=== PATIENT | male | born 1950 | race Caucasian/White ===

== ENCOUNTER 2017-03-03 13:14 | Emergency (ER) | payer MEDICARE, BC ==
[~2017-03-03] VITALS: Ht 175.3 cm; Wt 80.7 kg
[~2017-03-03 13:14] MED LIST: AMLO1TAB37 PO; CHOL4000 PO; INSU100C4 SQ; INSU100V8 SQ; LISI10TA2 PO; MAGN400T17 PO; METO25TA9 PO; NIAC500T82 PO; PANT40TA5 PO; TERB12GE TP; TRAM50TA PO
[2017-03-03 13:15] VITALS: BP 168/83
[2017-03-03] MEDS ORDERED: LIDOCAINE 2%/EPI 1:100,000 20 ML VIAL. ONE (14:19)
[2017-03-03] MEDS ORDERED: LIDOCAINE 2%/EPI 1:100,000 20 ML VIAL. IJ ONE (14:30)
[2017-03-03] MEDS ORDERED: cefTRIAXone IM 1 GM VIAL IM ONE (14:45)
--- NOTE | 2017-03-03 15:15 | PHYS DOC ---
General Chief Complaint: LACERATION/AVULSION Stated Complaint: RT HAND LAC Time Seen by MD: 14:11 Source: patient Exam Limitations: no limitations Problems: History of Present Illness Initial Comments Pt is 66/M to ED c/o right hand laceration. 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 Pt denies pain, no numbness/tingling/weakness /radiating sx. Persistent bleeding and wound edges open prompted pt to come for evaluation. Td UTD has full ROM right hand/fingers denies bone discomfort. Onset: just prior to arrival Severity: mild Pain/Injury Location: right hand Method of Injury: incised Modifying Factors: improves with other Allergies: Coded Allergies: aspirin (Verified Allergy, Unknown, Nausea and Vomiting, 01/16/14) nicotine (Verified Allergy, Unknown, Shortness of Air, 01/16/14) peanut (Verified Allergy, Unknown, Rash, 12/24/13) Uncoded Allergies: SUNTAN LOTION (Allergy, Unknown, Rash, 01/16/14) Past Medical History Medical History: other (CAD, DM, HTN, renal insufficiency) Surgical History: appendectomy (R above knee amputation) Social History Smoker: non-smoker Alcohol: none Drugs: none Review of Systems Constitutional: denies chills, denies fever Respiratory: denies cough, denies shortness of breath Cardiovascular: denies chest pain, denies palpitations Gastrointestinal: denies nausea, denies vomiting Musculoskeletal: see HPI Skin: see HPI Psychiatric/Neurological: see HPI Physical Exam General Appearance: WD/WN, no apparent distress HEENT: normal ENT inspection Neck: non-tender, supple Cardiovascular/Respiratory: normal peripheral pulses, no respiratory distress Back: no CVA tenderness, no vertebral tenderness Hand: laceration (2cm superficial lac right thenar eminence no pulsatile bleeding/FB) Neurologic/Tendon: normal sensation, normal motor functions, normal tendon functions, responds to pain, no evidence tendon injury Psychiatric: alert, oriented x 3 Skin: normal color (R hand as above) Laceration/Wound Repair Laceration/Wound Repair : Wound Location: upper extremity Wound's Depth, Shape: superficial, linear Wound Length (cm): 2 Wound Explored: clean Irrigated w/ Saline (ccs): 100 Betadine Prep?: Yes Anesthesia: Lidocaine w/ Epi Volume Anesthetic (ccs): 4 Wound Debrided: minimal Wound Repaired With: sutures Suture Size/Type: 4:0, nylon Number of Sutures: 4 Sterile Dressing Applied?: Yes Splint Applied?: No Progress Good wound edge approximation, pt tolerated well no complications see departure for wound care. Departure Time of Disposition: 15:12 Disposition: 01 HOME, SELF-CARE Diagnosis: laceration right hand Condition: GOOD Patient Instructions: Sutured Wound Care, [id number] Additional Instructions: OTC tylenol/ibuprofen as needed. No use right hand. Keep covered with sterile dressing until healed. Keep dry for 48 hours, after 48 hours wash twice daily with soap and warm water , blot dry. Change dressing each wash. OTC tylenol/ibuprofen as needed. Rx: cephalexin Follow up with a doctor or return to ED in 10 days for wound check/suture removal. Return to ED with new or changing symptoms. BARAK DAVILA DO March 03, 2017 15:15
== END 2017-03-03 15:17 | disposition home or self-care (01) ==
LOC: ER 13:14
DX: S61.411A Laceration without foreign body of right hand, initial encounter (principal); I25.10 Atherosclerotic heart disease of native coronary artery without angina pectoris; I10 Essential (primary) hypertension; E11.29 Type 2 diabetes mellitus with other diabetic kidney complication; I12.9 Hypertensive chronic kidney disease with stage 1 through stage 4 chronic kidney disease, or unspecified chronic kidney disease; Z89.611 Acquired absence of right leg above knee; Z88.6 Allergy status to analgesic agent; Z91.010 Allergy to peanuts; Z88.8 Allergy status to other drugs, medicaments and biological substances; W20.8XXA Other cause of strike by thrown, projected or falling object, initial encounter; Y93.89 Activity, other specified; Y99.8 Other external cause status; Y92.89 Other specified places as the place of occurrence of the external cause
CPT/HCPCS: 12001; 82947; 96372; 99283; J0696

== ENCOUNTER 2017-07-06 12:31 | Emergency (ER) | payer MEDICARE, BC ==
[~2017-07-06] VITALS: Ht 175.3 cm; Wt 88.9 kg
[~2017-07-06 12:31] MED LIST changes: -AMLO1TAB37 PO; +METO-239 PO; -METO25TA9 PO; +[UNRECOGNIZED DRUG - CODE] PO
--- NOTE | 2017-07-06 13:10 | PHYS DOC ---
Past History Past Medical History: CAD, Diabetes, Hypertension, Renal Disease Past Surgical History: Appendectomy, Other Smoking: Non-smoker Alcohol Use: None Drug Use: None Adult General Chief Complaint Chief Complaint: DIZZY/LIGHT HEADED HPI HPI Patient is a 66 year old male who presents with complaint of lightheadedness. Patient states that while he was working he stood up quickly and became very lightheaded. Patient denies loss of consciousness and denies fall. The patient states that he took his blood pressure at the time of the incident and found it to be 86/53. Patient has history of hypertension and diabetes mellitus currently on insulin therapy. The patient states he did not experience any associated chest pain or focal neurologic deficits with the episode. Patient was brought to the emergency department by EMS who gave the patient approximate 500 mL of IV fluids in route. Patient states that his symptoms have improved at this time but patient does state he still has some residual lightheadedness. Patient states that he took insulin shortly prior to arrival but did not eat his meal prior to arrival.[] Review of Systems Review of Systems Constitutional: Lightheadedness, denies fever or chills [] Eyes: Denies change in visual acuity, redness, or eye pain [] HENT: Denies nasal congestion or sore throat [] Respiratory: Denies cough or shortness of breath [] Cardiovascular: Denies chest pain or edema[] GI: Denies abdominal pain, nausea, vomiting, bloody stools or diarrhea [] : Denies dysuria or hematuria [] Musculoskeletal: Denies back pain or joint pain [] Integument: Denies rash or skin lesions [] Neurologic: Denies headache, focal weakness or sensory changes [] Current Medications Current Medications Current Medications Medications (Trade) Dose Ordered Sig/Michel Start Time Stop Time Status Last Admin Dose Admin Sodium Chloride 500 ml @ 0 mls/hr 1X ONCE 07/06/17 13:30 07/06/17 13:31 Allergies Allergies Allergies Coded Allergies Type Severity Reaction Last Updated Verified aspirin Allergy Unknown Nausea and Vomiting 01/16/14 Yes nicotine Allergy Unknown Shortness of Air 01/16/14 Yes peanut Allergy Unknown Rash 12/24/13 Yes Uncoded Allergies Type Severity Reaction Last Updated Verified SUNTAN LOTION Allergy Unknown Rash 01/16/14 Physical Exam Physical Exam Constitutional: Well developed, well nourished, no acute distress, non-toxic appearance. [] HENT: Normocephalic, atraumatic, bilateral external ears normal, oropharynx moist, no oral exudates, nose normal. [] Eyes: PERRLA, EOMI, conjunctiva normal, no discharge. [] Neck: Normal range of motion, no tenderness, supple, no stridor. [] Cardiovascular:Heart rate regular rhythm, no murmur [] Lungs & Thorax: Bilateral breath sounds clear to auscultation [] Abdomen: Bowel sounds normal, soft, no tenderness, no masses, no pulsatile masses. [] Skin: Warm, dry, no erythema, no rash. [] Back: No tenderness, no CVA tenderness. [] Extremities: Right AKA, no obvious deformity to left lower extremity, no tenderness, no clubbing, ROM intact, no edema. [] Neurologic: Alert and oriented X 3, normal motor function, normal sensory function, no focal deficits noted. [] Current Patient Data Vital Signs Vital Signs Date Time Temp Pulse Resp B/P (MAP) Pulse Ox O2 Delivery O2 Flow Rate FiO2 07/06/17 12:31 97.9 67 20 97 Room Air Lab Results Laboratory Tests Test 07/06/17 12:46 07/06/17 13:11 Glucose (Fingerstick) 137 mg/dL White Blood Count 6.6 x10^3/uL Red Blood Count 4.66 x10^6/uL Hemoglobin 14.6 g/dL Hematocrit 40.2 % Mean Corpuscular Volume 86 fL Mean Corpuscular Hemoglobin 31 pg Mean Corpuscular Hemoglobin Concent 36 g/dL Red Cell Distribution Width 13.3 % Platelet Count 204 x10^3/uL Neutrophils (%) (Auto) 60 % Lymphocytes (%) (Auto) 25 % Monocytes (%) (Auto) 12 % Eosinophils (%) (Auto) 2 % Basophils (%) (Auto) 1 % Neutrophils # (Auto) 3.9 x10^3uL Lymphocytes # (Auto) 1.6 x10^3/uL Monocytes # (Auto) 0.8 x10^3/uL Eosinophils # (Auto) 0.1 x10^3/uL Basophils # (Auto) 0.0 x10^3/uL Sodium Level 139 mmol/L Potassium Level 3.9 mmol/L Chloride Level 106 mmol/L Carbon Dioxide Level 26 mmol/L Anion Gap 7 Blood Urea Nitrogen 17 mg/dL Creatinine 0.6 mg/dL Estimated GFR (Cockcroft-Gault) 135.6 Glucose Level 136 mg/dL Calcium Level 9.0 mg/dL Magnesium Level 1.9 mg/dL Current Medications Medications (Trade) Dose Ordered Sig/Michel Route PRN Reason Start Time Stop Time Status Last Admin Dose Admin Sodium Chloride 500 ml @ 0 mls/hr 1X ONCE IV 07/06/17 13:30 07/06/17 13:31 DC 07/06/17 13:30 Laboratory Tests Test 07/06/17 12:46 Glucose (Fingerstick) 137 mg/dL (70-99) H EKG EKG Interpreted by me: Heart rate 66, sinus rhythm, normal intervals, normal axis, nonspecific T-wave inversion in lead 3, no acute ST elevations or depressions[] Radiology/Procedures Radiology/Procedures Not performed[] Course & Med Decision Making Course & Med Decision Making Pertinent Labs and Imaging studies reviewed. (See chart for details) Orthostatic vital signs were checked after patient had received an initial 500 mL bolus from EMS. The patient's blood pressure remained stable and patient's heart rate increased 10 points from lying down to standing up. Patient was given an additional 500 mL of IV fluids in the emergency department. Patient also noted that he had slight dizziness when turning his head. Patient states that he has had history of vertigo in the past and stated that the symptoms felt very similar. Patient given meclizine in the emergency department. The patient was able to self ambulate with a nonfocal during gait in the emergency department and stated he felt much better after treatment. Blood work unremarkable. Patient's symptoms combination of orthostatic hypotension as well as peripheral vertigo. Patient was advised to continue oral hydration at home. Patient written for meclizine to continue for vertigo symptoms. Advise follow- up with Dr. Lewis in the next 2-3 days for reevaluation and return to emergency department for any worsening symptoms. Patient was understanding and in agreement with treatment plan. Dragon Disclaimer Dragon Disclaimer This chart was dictated in whole or in part using Voice Recognition software in a busy, high-work load, and often noisy Emergency Department environment. It may contain unintended and wholly unrecognized errors or omissions. Departure Departure: Impression: Primary Impression: Orthostatic hypotension Additional Impression: Vertigo Disposition: HOME, SELF-CARE Condition: IMPROVED Referrals: CANDI LEWIS MD (PCP) Patient Instructions: Orthostatic Hypotension, Vertigo Additional Instructions: Follow-up with your primary doctor in 2-3 days for reevaluation. Return to the emergency department for any worsening symptoms. Scripts Meclizine Hcl (MECLIZINE HCL) 25 Mg Tablet 1 TAB PO Q8HRS Y for DIZZINESS, #30 TAB Prov: ESDRAS LLANES MD 07/06/17 Problem Qualifiers ESDRAS LLANES MD Jul 06, 2017 13:10
[2017-07-06] MEDS ORDERED: IV NORMAL SALINE 500ML 500 ML IV ONE (13:30)
[2017-07-06 13:36] LABS: CREATININE 0.6 mg/dL (0.7-1.3); GFR 135.6; MAGNESIUM 1.9 mg/dL (1.8-2.4); POTASSIUM 3.9 mmol/L (3.5-5.1)
--- NOTE | 2017-07-06 13:37 | EKG ---
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
[2017-07-06 13:42] LABS: BASO % 1 % (0-3); EOS # 0.1 x10^3/uL (0.0-0.7); EOS % 2 % (0-3); HEMATOCRIT 40.2 % (39.0-53.0); HEMOGLOBIN 14.6 g/dL (13.0-17.5); LYMPH # 1.6 x10^3/uL (1.0-4.8); LYMPH % 25 % (24-48); MEAN CORPUSCULAR HEMOGLOBIN 31 pg (25-35); MEAN CORPUSCULAR HGB CONC 36 g/dL (31-37); MEAN CORPUSCULAR VOLUME 86 fL (79-100); MONO # 0.8 x10^3/uL (0.0-1.1); MONO % 12 % (0-9); NEUT # 3.9 x10^3uL (1.8-7.7); NEUT % 60 % (31-73); PLATELET COUNT 204 x10^3/uL (140-400); RED BLOOD COUNT 4.66 x10^6/uL (4.30-5.70); RED CELL DISTRIBUTION WIDTH 13.3 % (11.5-14.5); WHITE BLOOD COUNT 6.6 x10^3/uL (4.0-11.0)
[2017-07-06] MEDS ORDERED: MECL25TA3 PO (14:17)
[2017-07-06 14:20] VITALS: BP 126/67
[2017-07-06] MEDS ORDERED: MECLIZINE 12.5 MG TABLET. PO ONE (14:30)
== END 2017-07-06 14:23 | disposition home or self-care (01) ==
LOC: ER 12:31
DX: I95.1 Orthostatic hypotension (principal); R42 Dizziness and giddiness; I10 Essential (primary) hypertension; E11.9 Type 2 diabetes mellitus without complications; I25.10 Atherosclerotic heart disease of native coronary artery without angina pectoris
CPT/HCPCS: 36415; 80048; 82947; 83735; 85025; 93005; 96360; 99285; J7040; J8597

== ENCOUNTER 2017-09-21 11:03 | Inpatient (IN) | payer MEDICARE, BC ==
[~2017-09-21] VITALS: Ht 176.5 cm; Wt 88.0 kg
[~2017-09-21 11:03] MED LIST changes: +MECL25TA3 PO
[2017-09-21] MEDS ORDERED: ONDANSETRON PF 4 MG/2 ML VIAL. IV ONE (11:45)
[2017-09-21] MEDS ORDERED: IV NORMAL SALINE 500ML 500 ML IV ONE (11:45)
[2017-09-21 11:48] LABS: BASO % 0 % (0-3); EOS % 1 % (0-3); HEMATOCRIT 44.7 % (39.0-53.0); HEMOGLOBIN 15.5 g/dL (13.0-17.5); LYMPH # 0.4 x10^3/uL (1.0-4.8); LYMPH % 7 % (24-48); MEAN CORPUSCULAR HEMOGLOBIN 30 pg (25-35); MEAN CORPUSCULAR HGB CONC 35 g/dL (31-37); MEAN CORPUSCULAR VOLUME 87 fL (79-100); MONO # 0.4 x10^3/uL (0.0-1.1); MONO % 6 % (0-9); NEUT # 5.4 x10^3uL (1.8-7.7); NEUT % 86 % (31-73); PLATELET COUNT 198 x10^3/uL (140-400); RED BLOOD COUNT 5.15 x10^6/uL (4.30-5.70); RED CELL DISTRIBUTION WIDTH 13.7 % (11.5-14.5); WHITE BLOOD COUNT 6.3 x10^3/uL (4.0-11.0)
--- NOTE | 2017-09-21 11:48 | RAD ---
Single view of the Chest 09/21/2017 1:20 PM Indication: N/V/D, fever Comparison: None Findings: There is no focal consolidation or infiltrate identified. There is no effusion or pneumothorax. The cardiomediastinal silhouette and pulmonary vasculature are within normal limits. No osseous abnormality is identified. Impression: No evidence of acute cardiopulmonary process.
[2017-09-21 12:01] LABS: ALBUMIN 3.8 g/dL (3.4-5.0); ALBUMIN/GLOBULIN RATIO 1.2 (1.0-1.7); CALCIUM 9.1 mg/dL (8.5-10.1); CREATININE 0.7 mg/dL (0.7-1.3); GFR 113.2; POTASSIUM 3.9 mmol/L (3.5-5.1); TOTAL BILIRUBIN 1.3 mg/dL (0.2-1.0)
--- NOTE | 2017-09-21 12:01 | EKG ---
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
[2017-09-21] MEDS ORDERED: IV NORMAL SALINE 1,000ML 1,000 ML IV ONE (12:30)
[2017-09-21 12:52] LABS: INFLUENZA A PATIENT NEGATIVE (NEGATIVE); INFLUENZA B PATIENT NEGATIVE (NEGATIVE)
[2017-09-21 13:59] LABS: BILIRUBIN,URINE NEG (NEG); CLARITY,URINE CLEAR; COLOR,URINE YELLOW; GLUCOSE,URINE >=1000 mg/dL (NEG); NITRITE,URINE NEG (NEG); UROBILINOGEN,URINE 0.2 mg/dL (0.2 mg/dL)
--- NOTE | 2017-09-21 14:11 | PHYS DOC ---
Past History Past Medical History: Diabetes, Hypertension Past Surgical History: Appendectomy, Other Smoking: Non-smoker Alcohol Use: None Drug Use: None Adult General Chief Complaint Chief Complaint: NAUSEA/VOMITING/DIARRHEA HPI HPI 67-year-old male patient with history of diabetes mellitus brought in by EMS because of nausea and vomiting and diarrhea. Patient states he woke up at 3 AM because of abdominal cramping pain with radiation to his chest and 6 episodes of nonbloody vomiting with constant nausea. Patient states he had one episode of bowel movement with dark color(not black). Patient rated the pain was 6/10 but decreased gradually and denies any pain at arrival to ER. Patient complaining of subjective fever and chills and EMS reported patient had temperature of 101 patient did not have and temperature in ER. Patient has chest pain, shortness of breath, cough and congestion, sick contact. Review of Systems Review of Systems Constitutional: Reports fever and chills [] Eyes: Denies change in visual acuity, redness, or eye pain [] HENT: Denies nasal congestion or sore throat [] Respiratory: Denies cough or shortness of breath [] Cardiovascular: No additional information not addressed in HPI [] GI: Reports abdominal pain, nausea, vomiting, dark stool] : Denies dysuria or hematuria [] Musculoskeletal: Denies back pain or joint pain [] Integument: Denies rash or skin lesions [] Neurologic: Denies headache, focal weakness or sensory changes [] Endocrine: Denies polyuria or polydipsia [] All other systems were reviewed and found to be within normal limits, except as documented in this note. Current Medications Current Medications Current Medications Medications (Trade) Dose Ordered Sig/Michel Start Time Stop Time Status Last Admin Dose Admin Ondansetron HCl (Zofran) 4 mg 1X ONCE 09/21/17 11:45 09/21/17 11:46 DC 09/21/17 11:42 4 MG Sodium Chloride 1,000 ml @ 1,000 mls/hr 1X ONCE 09/21/17 12:30 09/21/17 13:29 DC 09/21/17 12:42 1,000 MLS/HR Allergies Allergies Allergies Coded Allergies Type Severity Reaction Last Updated Verified aspirin Allergy Unknown Nausea and Vomiting 01/16/14 Yes nicotine Allergy Unknown Shortness of Air 01/16/14 Yes peanut Allergy Unknown Rash 12/24/13 Yes Uncoded Allergies Type Severity Reaction Last Updated Verified SUNTAN LOTION Allergy Unknown Rash 01/16/14 Physical Exam Physical Exam Constitutional: Well developed, well nourished, mild distress, non-toxic appearance. [] HENT: Normocephalic, atraumatic, bilateral external ears normal, oropharynx moist, no oral exudates, nose normal. [] Eyes: PERRLA, EOMI, conjunctiva normal, no discharge. [] Neck: Normal range of motion, no tenderness, supple, no stridor. [] Cardiovascular:Tachycardia, no murmur [] Lungs & Thorax: Bilateral breath sounds clear to auscultation [] Abdomen: Bowel sounds normal, soft, no tenderness, no masses, no pulsatile masses. [] Skin: Warm, dry, no erythema, no rash. [] Back: No tenderness, no CVA tenderness. [] Extremities: No tenderness, no cyanosis, no clubbing, ROM intact, no edema, right above-knee amputation Neurologic: Alert and oriented X 3, normal motor function, normal sensory function, no focal deficits noted. [] Psychologic: Affect normal, judgement normal, mood normal. [] Current Patient Data Vital Signs Vital Signs Date Time Temp Pulse Resp B/P (MAP) Pulse Ox O2 Delivery O2 Flow Rate FiO2 09/21/17 13:53 116 16 140/89 (106) 94 Room Air 09/21/17 11:03 98.6 Lab Results Laboratory Tests Test 09/21/17 11:34 09/21/17 12:10 09/21/17 13:45 White Blood Count 6.3 x10^3/uL (4.0-11.0) Red Blood Count 5.15 x10^6/uL (4.30-5.70) Hemoglobin 15.5 g/dL (13.0-17.5) Hematocrit 44.7 % (39.0-53.0) Mean Corpuscular Volume 87 fL (79-100) Mean Corpuscular Hemoglobin 30 pg (25-35) Mean Corpuscular Hemoglobin Concent 35 g/dL (31-37) Red Cell Distribution Width 13.7 % (11.5-14.5) Platelet Count 198 x10^3/uL (140-400) Neutrophils (%) (Auto) 86 % (31-73) H Lymphocytes (%) (Auto) 7 % (24-48) L Monocytes (%) (Auto) 6 % (0-9) Eosinophils (%) (Auto) 1 % (0-3) Basophils (%) (Auto) 0 % (0-3) Neutrophils # (Auto) 5.4 x10^3uL (1.8-7.7) Lymphocytes # (Auto) 0.4 x10^3/uL (1.0-4.8) L Monocytes # (Auto) 0.4 x10^3/uL (0.0-1.1) Eosinophils # (Auto) 0.0 x10^3/uL (0.0-0.7) Basophils # (Auto) 0.0 x10^3/uL (0.0-0.2) Prothrombin Time 11.6 SEC (9.4-11.4) H Prothrombin Time INR 1.1 (0.9-1.1) Sodium Level 137 mmol/L (136-145) Potassium Level 3.9 mmol/L (3.5-5.1) Chloride Level 104 mmol/L (98-107) Carbon Dioxide Level 20 mmol/L (21-32) L Anion Gap 13 (6-14) Blood Urea Nitrogen 20 mg/dL (8-26) Creatinine 0.7 mg/dL (0.7-1.3) Estimated GFR (Cockcroft-Gault) 113.2 BUN/Creatinine Ratio 29 (6-20) H Glucose Level 238 mg/dL (70-99) H Lactic Acid Level 1.3 mmol/L (0.4-2.0) Calcium Level 9.1 mg/dL (8.5-10.1) Total Bilirubin 1.3 mg/dL (0.2-1.0) H Aspartate Amino Transferase (AST) 26 U/L (15-37) Alanine Aminotransferase (ALT) 38 U/L (16-63) Alkaline Phosphatase 98 U/L (46-116) Troponin I Quantitative < 0.017 ng/mL (0-0.055) Total Protein 7.0 g/dL (6.4-8.2) Albumin 3.8 g/dL (3.4-5.0) Albumin/Globulin Ratio 1.2 (1.0-1.7) Lipase 61 U/L (73-393) L Influenza Type A (Rapid) Negative (NEGATIVE) Influenza Type B (Rapid) Negative (NEGATIVE) Urine Collection Type Unknown Urine Color Yellow Urine Clarity Clear Urine pH 6.0 Urine Specific [place] 1.020 Urine Protein Neg (NEG-TRACE) Urine Glucose (UA) >=1000 mg/dL (NEG) Urine Ketones (Stick) 80 mg/dL (NEG) Urine Blood Trace (NEG) Urine Nitrite Neg (NEG) Urine Bilirubin Neg (NEG) Urine Urobilinogen Dipstick 0.2 mg/dL (0.2 mg/dL) Urine Leukocyte Esterase Neg (NEG) EKG EKG [EKG interpreted by me. EKG at 1156 showed heart rate of 111 with sinus tachycardia otherwise normal EKG] Radiology/Procedures Radiology/Procedures Chest x-ray was unremarkable[] Course & Med Decision Making Course & Med Decision Making Pertinent Labs and Imaging studies reviewed. (See chart for details) in addition of patient in ER showed 67-year-old male patient brought in by EMS because of nausea and vomiting. Patient had tachycardia and treated with 2 L of IV fluid and Zofran and heart rate dropped from 127 to 110. Patient tolerated oral intake. EKG and cardiac enzyme was unremarkable. Lactic was negative. Blood culture is pending. Patient did not have fever in several checking in ER. Because of gastroenteritis and tachycardia patient's primary care physician was informed and recommended to admit patient for observation. Dr. Lewis consulted at 1400. Dragon Disclaimer Dragon Disclaimer This electronic medical record was generated, in whole or in part, using a voice recognition dictation system. Departure Departure: Impression: Primary Impression: Acute gastroenteritis Additional Impressions: Tachycardia Uncontrolled diabetes mellitus History of right above knee amputation Disposition: ADMITTED INPATIENT (At 1400) Admitting Physician: Balta Lewis Condition: IMPROVED Referrals: BALTA LEWIS MD (PCP) Problem Qualifiers TAWANNA MAK MD Sep 21, 2017 14:11
[2017-09-21] MEDS ORDERED: ONDANSETRON PF 4 MG/2 ML VIAL. IV PRN (14:15)
[2017-09-21] MEDS ORDERED: IV NORMAL SALINE 1,000ML 1,000 ML IV SCH (14:15)
[2017-09-21 15:18] VITALS: BP 128/89
[2017-09-21] MEDS ORDERED: NON FORMULARY ITEM (Insulin Aspart (Novolog) 100 UNIT) SQ SCH (15:30)
[2017-09-21] MEDS ORDERED: traMADol 50 MG TABLET PO PRN (15:30)
[2017-09-21] MEDS: IV NORMAL SALINE 1,000ML 1,000 ML IV SCH (15:37)
[2017-09-21] MEDS ORDERED: TERBINAFINE 1% TOPICAL CREAM 30GM TUBE. TP SCH (16:00)
[2017-09-21] MEDS ORDERED: DEXTROSE 50% 25 GM / 50ML DISP.SYRIN. IV PRN (17:45)
[2017-09-21] MEDS ORDERED: IOHEXOL 300 MG/ML 75 ML VIAL. IV ONE (18:30)
[2017-09-21] MEDS ORDERED: ZOLPIDEM 5 MG TABLET. PO PRN (18:45)
[2017-09-21 19:50] VITALS: BP 147/70
--- NOTE | 2017-09-21 20:11 | RAD ---
CTA Chest with contrast: Clinical History: TACHYCARDIA, SHORT OF AIR, ELEVATED D-DIMER
75MLS OMNI 300 IV CONTRAST Shortness of breath. Axial helical images of the chest were obtained after the administration of 75 cc of IV Omni 300 and timed appropriately for a pulmonary arterial study. Conventional axial reconstruction was performed in addition to coronal, sagittal and bilateral oblique MIP (maximum intensity projection). This study was ordered to detect possible pulmonary embolism. There are no filling defects to suggest pulmonary embolism. The lungs and pleural margins are clear. There is no mediastinal or hilar lymphadenopathy. The thoracic aorta appears normal. Impression: 1. No evidence of pulmonary embolism. 2. No significant findings. PQRS Compliance Statement: One or more of the following individualized dose reduction techniques were utilized for this examination: 1. Automated exposure control 2. Adjustment of the mA and/or kV according to patient size 3. Use of iterative reconstruction technique Electronically signed by: Mark Anthony Gomes III, MD (09/21/2017 8:08 PM) [facility]
[2017-09-21] MEDS: ATORVASTATIN CALCIUM 20 MG TABLET PO SCH (20:22)
[2017-09-21] MEDS: MAGNESIUM OXIDE 400 MG TABLET PO SCH (20:22)
[2017-09-21] MEDS: ENOXAPARIN ** NOTE DOSE ** SYRINGE SQ SCH (20:22)
[2017-09-21] MEDS: NIACIN ER 500 MG TABLET.ER PO SCH (20:23)
[2017-09-21] MEDS: LISINOPRIL 10 MG TABLET PO SCH (20:23)
[2017-09-21] MEDS: amLODIPine BESYLATE 5 MG TABLET PO SCH (20:23)
[2017-09-21] MEDS: INSULIN ASPART 300 UNITS/3 ML INSULN.PEN SQ SCH (20:29)
[2017-09-21] MEDS ORDERED: ATORVASTATIN PO SCH (21:00)
[2017-09-21] MEDS ORDERED: AMLODIPINE PO SCH (21:00)
[2017-09-21] MEDS ORDERED: INSULIN DETEMIR 300 UNITS/3 ML INSULN.PEN. SQ SCH (21:00)
--- NOTE | 2017-09-21 21:34 | HP ---
ADMIT DATE: 09/21/2017 HISTORY OF PRESENT ILLNESS: A 67-year-old gentleman, who came through the Emergency Room feeling quite ill. He is a type 1 brittle diabetic. The patient had nausea, vomiting, and diarrhea, woke up at 3 on the morning of admission with abdominal cramping, pain and radiation of chest pain. The patient had 6 episodes of nonbloody vomiting with constant nausea. The patient states he has had one episode of bowel movement with dark colored blood. The patient rated it 6/10, which decreased gradually. Denies any pain arrival to the Emergency Room, although the patient was admitted, temperature was 101 with nausea, vomiting, melena, and hematochezia. The patient was admitted for further evaluation of all these above medical problems. PAST MEDICAL HISTORY: He has had a history of cataracts, glaucoma, coronary artery disease with stents, hypercholesterolemia, hypertension, right above the knee amputation, orthopedic surgery prosthesis, endocrine disorders, diabetes. VACCINATIONS: Up-to-date. ALLERGIES: Suntan lotion, aspirin, nicotine and peanuts. HOME MEDICATIONS: Include amlodipine 5 mg, Lipitor 80 mg, vitamin D3, NovoLog, Lantus, lisinopril 10 mg, meclizine 25 mg, metoprolol 25 mg every 24 hours, niacin 500 mg every 24 hours, Protonix 40 mg a day, Lamisil 12 grams weekly, Ultram p.r.n. FAMILY HISTORY: Positive for type 2 diabetes and hypertension. SOCIAL HISTORY: The patient is a nonsmoker, otherwise drinks occasional 6 pack of beer per week. The patient denies hard drug use. REVIEW OF SYSTEMS: The patient denies chest pain, has some nausea, but no vomiting at present time. Diarrhea is pretty much ceased. The patient is neurologically intact baseline, otherwise. PHYSICAL EXAMINATION: GENERAL: Ill-appearing white male, moderate amount of distress. VITAL SIGNS: Blood pressure 130/74, respiration 16, pulse 120, and temperature 98.8. HEENT: The patient's head was atraumatic, normocephalic. Eyes: PERRLA without jaundice. Mouth and throat were normal. NECK: Supple. No JVD or thyromegaly. LUNGS: Diminished throughout, poor movement of air, but clear. CARDIOVASCULAR: Regular sinus rhythm. ABDOMEN: Soft, nontender, no rebound or guarding. Positive bowel sounds, no hepatosplenomegaly was noted. EXTREMITIES: No clubbing, cyanosis nor edema. NEUROLOGIC: The patient was alert and oriented x 3. Speech is fluent, spontaneous, and appropriate. Cranial nerves 2 through 12 are grossly intact. The patient was admitted for further evaluation. IMPRESSION: Nausea, vomiting, dehydration, probable hematochezia, melena, gastroenteritis; type 1 diabetes, under poor control; history of peripheral vascular disease with right AKA, and history of coronary artery disease. He has a previous history of appendectomy. He has had history of ulcers, stomach and esophagus. The patient will be monitored carefully, given IV fluids. Monitor his pulse. He did have an elevated D-dimer. CTA is pending. We used a compression hose on his legs because of the possibility of bleed here. CANDI BUNCH MD DR: LENORA/tika JOB#: [id number] / [id number]
[2017-09-21 22:38] VITALS: BP 128/72
[2017-09-21 23:34] VITALS: BP 128/57
[2017-09-22] MEDS: IV NORMAL SALINE 1,000ML 1,000 ML IV SCH ×3 (00:41→19:22)
[2017-09-22 05:50] VITALS: BP 121/61
[2017-09-22 06:20] LABS: BASO % 0 % (0-3); EOS # 0.1 x10^3/uL (0.0-0.7); EOS % 1 % (0-3); HEMATOCRIT 37.8 % (39.0-53.0); HEMOGLOBIN 13.1 g/dL (13.0-17.5); LYMPH # 0.6 x10^3/uL (1.0-4.8); LYMPH % 8 % (24-48); MEAN CORPUSCULAR HEMOGLOBIN 31 pg (25-35); MEAN CORPUSCULAR HGB CONC 35 g/dL (31-37); MEAN CORPUSCULAR VOLUME 88 fL (79-100); MONO # 0.7 x10^3/uL (0.0-1.1); MONO % 9 % (0-9); NEUT % 82 % (31-73); PLATELET COUNT 153 x10^3/uL (140-400); RED BLOOD COUNT 4.31 x10^6/uL (4.30-5.70); RED CELL DISTRIBUTION WIDTH 13.5 % (11.5-14.5); WHITE BLOOD COUNT 7.3 x10^3/uL (4.0-11.0)
[2017-09-22 06:29] LABS: CALCIUM 8.2 mg/dL (8.5-10.1); CREATININE 0.6 mg/dL (0.7-1.3); GFR 135.2; POTASSIUM 3.9 mmol/L (3.5-5.1)
[2017-09-22] MEDS: INSULIN ASPART 300 UNITS/3 ML INSULN.PEN SQ SCH ×4 (07:30→20:16)
[2017-09-22] MEDS ORDERED: METOPROLOL SUCC 24HR ER 25 MG TAB.ER.24H. PO SCH (09:00)
[2017-09-22] MEDS: ENOXAPARIN ** NOTE DOSE ** SYRINGE SQ SCH ×2 (09:06→20:05)
[2017-09-22] MEDS: PANTOPRAZOLE 40 MG TABLET. PO SCH (09:06)
[2017-09-22] MEDS: MAGNESIUM OXIDE 400 MG TABLET PO SCH ×2 (09:07→20:06)
[2017-09-22] MEDS: CHOLECALCIFEROL (VITAMIN D3) 1,000 UNIT TABLET PO SCH (09:07)
[2017-09-22] MEDS: METOPROLOL SUCC 24HR ER 50 MG TAB.ER.24H. PO SCH (09:09)
--- NOTE | 2017-09-22 09:16 | RAD ---
AP upright and supine views abdomen 09/21/2017 Clinical indication: Abdominal pain. Comparison: CT abdomen 03/17/2012. Findings: There is a nonobstructive bowel gas pattern. No radiographic evidence of pneumoperitoneum or portal venous gas. There is contrast in the renal collecting system and urinary bladder likely from prior intravenous administration. Multilevel lumbar spondylosis and bilateral sacroiliac degenerative changes. There is fusion of the symphysis pubis. Impression: No radiographic evidence of bowel obstruction or pneumoperitoneum.
[2017-09-22 11:30] VITALS: BP 131/76
[2017-09-22] MEDS ORDERED: TERBINAFINE 1% TOPICAL CREAM 30GM TUBE. TP SCH (14:27)
[2017-09-22] MEDS ORDERED: INSULIN DETEMIR 300 UNITS/3 ML INSULN.PEN. SQ SCH (14:27)
--- NOTE | 2017-09-22 15:17 | PDOC2 ---
CONSULT Date of Admission DATE: 09/22/17 TIME: 15:08 Reason for Consult: Tachycardia Referring Physician: Dr. Martinez Chief Complaint Abdominal pain with nausea, vomiting and diarrhea Source: Patient Problem List Problems Medical Problems: (1) Acute gastroenteritis Status: Acute (2) History of right above knee amputation Status: Acute (3) Tachycardia Status: Acute (4) Uncontrolled diabetes mellitus Status: Acute History of Present Illness The patient is a pleasant 67-year-old male who was admitted through the emergency room with episodes of severe nausea, vomiting and diarrhea associated with some abdominal discomfort. Peak temperature was 101 after admission. The patient has been treated overnight and is feeling significantly better with a significant decrease in symptoms. We are reviewing the patient secondary to tachycardia. His initial heart rate was approximately 130 in a sinus rhythm. Post treatment including IV fluids his heart rate now is improved but still elevated at 108. EKG confirms a sinus tachycardia with no ischemic changes. Lab includes a potassium level of 3.9, TSH level I.7 and a d-dimer 0.65. Chest x- ray has shown no acute processes. Chest CT scan shows no evidence of PE. The patient does have a history of hypertension and hyperlipidemia and also of coronary artery disease. However he denies any episodes of chest discomfort. He is now resting comfortably in bed. Cardiovascular: CAD, HTN, hyperipidemia Endocrine: Diabetes Past Surgical History: Other (right [id number] amputation secondary to trauma), No pertinent history Family History: Diabetes Smoke: No Drugs: None Current Medications Current Medications Ondansetron HCl (Zofran) 4 mg 1X ONCE IV Last administered on 09/21/17 11:42 ; Start 09/21/17 at 11:45; Stop 09/21/17 at 11:46; Status DC Sodium Chloride 500 ml @ 0 mls/hr 1X ONCE IV Last administered on 09/21/17 11:40; Start 09/21/17 at 11:45; Stop 09/21/17 at 11:46; Status DC Sodium Chloride 1,000 ml @ 1,000 mls/hr 1X ONCE IV Last administered on 09/21 12:42; Start 09/21/17 at 12:30; Stop 09/21/17 at 13:29; Status DC Ondansetron HCl (Zofran) 4 mg PRN Q4HRS PRN IV NAUSEA/VOMITING Last administered on 09/21/17 17:57; Start 09/21/17 at 14:15; Stop 09/22/17 at 14 :14; Status DC Sodium Chloride 1,000 ml @ 100 mls/hr Q10H IV ; Start 09/21/17 at 14:15; Stop 09/21/17 at 15:35; Status DC Lisinopril (Prinivil) 10 mg QHS PO Last administered on 09/21/17 20:23; Start 09/21/17 at 21:00 Magnesium Oxide (Magnesium Oxide) 400 mg BID PO Last administered on 09:07; Start 09/21/17 at 21:00 Metoprolol Succinate (Toprol Xl) 25 mg DAILY PO ; Start 09/22/17 at 09:00; Stop 09/22/17 at 09:00; Status DC Niacin (Slo-Niacin) 500 mg QHS PO Last administered on 09/21/17 20:23; Start 09/21/17 at 21:00 Pantoprazole Sodium (Protonix) 40 mg DAILY PO Last administered on 09/22/17 09:06; Start 09/22/17 at 09:00 Tramadol HCl (Ultram) 50 mg PRN Q4HRS PRN PO pain Last administered on 03:46; Start 09/21/17 at 15:30 Non-Formulary Medication 1 each QHS PO ; Start 09/21/17 at 21:00; Stop at 21:00; Status DC Vitamin D (Vitamin D3) 4,000 unit DAILY PO Last administered on 09/22/17 09: 07; Start 09/22/17 at 09:00 Non-Formulary Medication 100 unit sliding scale SQ ; Start 09/21/17 at 15:30; Stop 09/21/17 at 17:45; Status DC Insulin Detemir (Levemir) 28 units QHS SQ Last administered on 09/21/17 20:26 ; Start 09/21/17 at 21:00; Stop 09/22/17 at 14:27; Status DC Terbinafine HCl (LamISIL) 1 iza 3X/WEEK TP ; Start 09/21/17 at 16:00; Stop at 14:27; Status DC Sodium Chloride 1,000 ml @ 75 mls/hr [id number] IV Last administered on 09:14; Start 09/21/17 at 15:30 Metoprolol Succinate (Toprol Xl) 50 mg DAILY PO Last administered on 09:09; Start 09/22/17 at 09:00 Amlodipine Besylate (Norvasc) 5 mg QHS PO Last administered on 09/21/17 20:23 ; Start 09/21/17 at 21:00 Atorvastatin Calcium (Lipitor) 80 mg QHS PO Last administered on 09/21/17 20: 22; Start 09/21/17 at 21:00 Insulin Aspart (NovoLOG) 0-5 UNITS QIDACHS SQ Last administered on 09/22/17 14:33; Start 09/21/17 at 21:00 Dextrose 12.5 gm PRN Q15MIN PRN IV SEE COMMENTS; Start 09/21/17 at 17:45 Iohexol (Omnipaque 300 Mg/ml) 75 ml 1X ONCE IV Last administered on 18:42; Start 09/21/17 at 18:30; Stop 09/21/17 at 18:31; Status DC Zolpidem Tartrate (Ambien) 5 mg PRN QHS PRN PO INSOMNIA, MAY REPEAT IN 1HR; Start 09/21/17 at 18:45 Enoxaparin Sodium (Lovenox 80mg Syringe) 80 mg Q12HR SQ Last administered on 09:06; Start 09/21/17 at 21:00 Insulin Detemir (Levemir) 28 units QHS SQ ; Start 09/22/17 at 14:27 Terbinafine HCl (LamISIL) 1 iza 3X/WEEK TP ; Start 09/22/17 at 14:27 Active Scripts Active Meclizine Hcl 25 Mg Tablet 1 Tab PO Q8HRS PRN Reported Magox 400 (Magnesium Oxide) 400 Mg Tablet 400 Mg PO BID Vitamin D3 (Cholecalciferol (Vitamin D3)) 4,000 Unit Capsule 4,000 Unit PO DAILY Novolog (Insulin Aspart) 100 Unit/1 Ml Cartridge 100 Unit SQ SLIDING SCALE Niacin Er (Niacin) 500 Mg Tab.er.24h 500 Mg PO QHS Lantus (Insulin Glargine,Hum.rec.anlog) 100 Unit/1 Ml Vial 100 Unit SQ HS Lamisil At (Terbinafine Hcl) 12 Gm Gel..gram. 12 Gm TP 3XWEEK Tramadol Hcl (Tramadol HCl) 50 Mg Tablet 50 Mg PO Q4HRS PRN Pantoprazole Sodium 40 Mg Tablet.dr 40 Mg PO DAILY Lisinopril 10 Mg Tablet 10 Mg PO QHS Metoprolol Succinate ( Xl ) (Metoprolol Succinate) 25 Mg Tab.er.24h 25 Mg PO DAILY Amlodipine-Atorvast 5-80 Mg (Amlodipine/Atorvastatin) 1 Each Tablet 1 Each PO QHS Allergies: Coded Allergies: aspirin (Verified Allergy, Unknown, Nausea and Vomiting, 01/16/14) nicotine (Verified Allergy, Unknown, Shortness of Air, 01/16/14) peanut (Verified Allergy, Unknown, Rash, 12/24/13) Uncoded Allergies: SUNTAN LOTION (Allergy, Unknown, Rash, 01/16/14) Gastrointestinal: YES: Nausea, Vomiting General: mild distress HEENT: Atraumatic Lungs: Clear to auscultation Heart: Other (regular rhythm with a rate of 108) Abdomen: Normal bowel sounds VITALS Vital Signs Date Time Temp Pulse Resp B/P (MAP) Pulse Ox O2 Delivery O2 Flow Rate FiO2 09/22/17 11:30 97.9 79 16 131/76 (94) 95 Room Air Labs Laboratory Tests Test 09/21/17 11:34 09/21/17 12:10 09/21/17 13:45 09/21/17 15:36 White Blood Count 6.3 x10^3/uL (4.0-11.0) Red Blood Count 5.15 x10^6/uL (4.30-5.70) Hemoglobin 15.5 g/dL (13.0-17.5) Hematocrit 44.7 % (39.0-53.0) Mean Corpuscular Volume 87 fL (79-100) Mean Corpuscular Hemoglobin 30 pg (25-35) Mean Corpuscular Hemoglobin Concent 35 g/dL (31-37) Red Cell Distribution Width 13.7 % (11.5-14.5) Platelet Count 198 x10^3/uL (140-400) Neutrophils (%) (Auto) 86 % (31-73) Lymphocytes (%) (Auto) 7 % (24-48) Monocytes (%) (Auto) 6 % (0-9) Eosinophils (%) (Auto) 1 % (0-3) Basophils (%) (Auto) 0 % (0-3) Neutrophils # (Auto) 5.4 x10^3uL (1.8-7.7) Lymphocytes # (Auto) 0.4 x10^3/uL (1.0-4.8) Monocytes # (Auto) 0.4 x10^3/uL (0.0-1.1) Eosinophils # (Auto) 0.0 x10^3/uL (0.0-0.7) Basophils # (Auto) 0.0 x10^3/uL (0.0-0.2) Prothrombin Time 11.6 SEC (9.4-11.4) Prothromb Time International Ratio 1.1 (0.9-1.1) Sodium Level 137 mmol/L (136-145) Potassium Level 3.9 mmol/L (3.5-5.1) Chloride Level 104 mmol/L (98-107) Carbon Dioxide Level 20 mmol/L (21-32) Anion Gap 13 (6-14) Blood Urea Nitrogen 20 mg/dL (8-26) Creatinine 0.7 mg/dL (0.7-1.3) Estimated GFR (Cockcroft-Gault) 113.2 BUN/Creatinine Ratio 29 (6-20) Glucose Level 238 mg/dL (70-99) Lactic Acid Level 1.3 mmol/L (0.4-2.0) Calcium Level 9.1 mg/dL (8.5-10.1) Total Bilirubin 1.3 mg/dL (0.2-1.0) Aspartate Amino Transf (AST/SGOT) 26 U/L (15-37) Alanine Aminotransferase (ALT/SGPT) 38 U/L (16-63) Alkaline Phosphatase 98 U/L (46-116) Troponin I Quantitative < 0.017 ng/mL (0-0.055) Total Protein 7.0 g/dL (6.4-8.2) Albumin 3.8 g/dL (3.4-5.0) Albumin/Globulin Ratio 1.2 (1.0-1.7) Lipase 61 U/L (73-393) Influenza Type A (Rapid) Negative (NEGATIVE) Influenza Type B (Rapid) Negative (NEGATIVE) Urine Collection Type Unknown Urine Color Yellow Urine Clarity Clear Urine pH 6.0 Urine Specific [place] 1.020 Urine Protein Neg (NEG-TRACE) Urine Glucose (UA) >=1000 mg/dL (NEG) Urine Ketones (Stick) 80 mg/dL (NEG) Urine Blood Trace (NEG) Urine Nitrite Neg (NEG) Urine Bilirubin Neg (NEG) Urine Urobilinogen Dipstick 0.2 mg/dL (0.2 mg/dL) Urine Leukocyte Esterase Neg (NEG) Glucose (Fingerstick) 175 mg/dL (70-99) Test 09/21/17 16:25 09/21/17 20:23 09/22/17 06:10 09/22/17 07:41 D-Dimer (Sultana) 0.65 mg/L (0.00-0.50) Thyroid Stimulating Hormone (TSH) 1.736 uIU/mL (0.358-3.740) Glucose (Fingerstick) 250 mg/dL (70-99) 131 mg/dL (70-99) White Blood Count 7.3 x10^3/uL (4.0-11.0) Red Blood Count 4.31 x10^6/uL (4.30-5.70) Hemoglobin 13.1 g/dL (13.0-17.5) Hematocrit 37.8 % (39.0-53.0) Mean Corpuscular Volume 88 fL (79-100) Mean Corpuscular Hemoglobin 31 pg (25-35) Mean Corpuscular Hemoglobin Concent 35 g/dL (31-37) Red Cell Distribution Width 13.5 % (11.5-14.5) Platelet Count 153 x10^3/uL (140-400) Neutrophils (%) (Auto) 82 % (31-73) Lymphocytes (%) (Auto) 8 % (24-48) Monocytes (%) (Auto) 9 % (0-9) Eosinophils (%) (Auto) 1 % (0-3) Basophils (%) (Auto) 0 % (0-3) Neutrophils # (Auto) 6.0 x10^3uL (1.8-7.7) Lymphocytes # (Auto) 0.6 x10^3/uL (1.0-4.8) Monocytes # (Auto) 0.7 x10^3/uL (0.0-1.1) Eosinophils # (Auto) 0.1 x10^3/uL (0.0-0.7) Basophils # (Auto) 0.0 x10^3/uL (0.0-0.2) Sodium Level 140 mmol/L (136-145) Potassium Level 3.9 mmol/L (3.5-5.1) Chloride Level 107 mmol/L (98-107) Carbon Dioxide Level 23 mmol/L (21-32) Anion Gap 10 (6-14) Blood Urea Nitrogen 11 mg/dL (8-26) Creatinine 0.6 mg/dL (0.7-1.3) Estimated GFR (Cockcroft-Gault) 135.2 Glucose Level 158 mg/dL (70-99) Calcium Level 8.2 mg/dL (8.5-10.1) Test 09/22/17 12:03 Glucose (Fingerstick) 225 mg/dL (70-99) Images Chest x-ray shows no acute processes. CTA of the chest shows no PE Assessment/Plan 1. Acute gastroenteritis. Significantly improved on present medical treatment. We'll continue fluids and other treatments as above. 2. Sinus tachycardia. Tachycardia is appropriate for the patient's medical condition including his loss of fluids although the patient symptomatically is improved today his heart rate does continue to be mildly elevated. Agree with present treatments including fluids and increasing the patient's activities. 3. Hypertension. Continue medical treatment. 4. Hyperlipidemia. We'll check lab in the morning. 5. Diabetes mellitus. Thank you for allowing us to participate in the care of your patient. Problems: GOLDIE ANDERSON MD Sep 22, 2017 15:17
[2017-09-22 15:41] VITALS: BP 127/72
[2017-09-22] MEDS ORDERED: INSULIN ASPART 300 UNITS/3 ML INSULN.PEN SQ ONE (19:00)
[2017-09-22] MEDS: NIACIN ER 500 MG TABLET.ER PO SCH (20:05)
[2017-09-22] MEDS: ATORVASTATIN CALCIUM 20 MG TABLET PO SCH (20:05)
[2017-09-22] MEDS: LISINOPRIL 10 MG TABLET PO SCH (20:06)
[2017-09-22] MEDS: amLODIPine BESYLATE 5 MG TABLET PO SCH (20:06)
[2017-09-22 20:15] VITALS: BP 132/75
--- NOTE | 2017-09-22 20:53 | PN ---
DATE: SUBJECTIVE: A 67-year-old male came in with melena, hematochezia, nausea, vomiting and diarrhea. The patient is resting fairly comfortably, making fairly good progress, although there is still running low-grade temperature of 99.6, pulse is still over 115, respiratory rate 20, pulse of 120/60. The patient continues to be monitored carefully. The patient's labs are basically showing some signs of improvement. He is a type 1 diabetic. Otherwise, the patient is still fairly weak. We will continue to monitor him accordingly. Make further evaluation on that otherwise. PHYSICAL EXAMINATION: LUNGS: Clear. CARDIOVASCULAR: Stable. ABDOMEN: Soft, nontender. Labs are basically stable. There is an imaging of his CTA, was unremarkable as was his abdominal series. IMPRESSION: Melena, hematochezia, type 1 diabetes, gastroenteritis, dehydration, elevated D-dimer, negative CTA. CANDI BUNCH MD DR: LENORA/tika JOB#: [id number] / [id number]
[2017-09-22 23:30] VITALS: BP 113/65
[2017-09-23 05:47] VITALS: BP 98/58
[2017-09-23] MEDS: INSULIN ASPART 300 UNITS/3 ML INSULN.PEN SQ SCH (07:30)
[2017-09-23] MEDS ORDERED: DEXTROSE ORAL GEL 15 GM TUBE. ONE (07:41)
[2017-09-23] MEDS ORDERED: DEXTROSE ORAL GEL 15 GM TUBE. PO PRN (07:45)
[2017-09-23 07:50] LABS: CALCIUM 8.3 mg/dL (8.5-10.1); CREATININE 0.7 mg/dL (0.7-1.3); GFR 113.2; MAGNESIUM 1.7 mg/dL (1.8-2.4); POTASSIUM 3.2 mmol/L (3.5-5.1)
[2017-09-23] MEDS ORDERED: INSULIN ASPART 300 UNITS/3 ML INSULN.PEN SQ SCH ×3 (08:00→17:00)
[2017-09-23] MEDS: PANTOPRAZOLE 40 MG TABLET. PO SCH (08:49)
[2017-09-23] MEDS: MAGNESIUM OXIDE 400 MG TABLET PO SCH (08:49)
[2017-09-23] MEDS: CHOLECALCIFEROL (VITAMIN D3) 1,000 UNIT TABLET PO SCH (08:50)
[2017-09-23] MEDS: METOPROLOL SUCC 24HR ER 50 MG TAB.ER.24H. PO SCH (08:50)
[2017-09-23] MEDS: ENOXAPARIN ** NOTE DOSE ** SYRINGE SQ SCH (08:51)
[2017-09-23] MEDS: IV NORMAL SALINE 1,000ML 1,000 ML IV SCH (08:52)
[2017-09-23 10:41] VITALS: BP 136/79
--- NOTE | 2017-09-23 19:43 | DS ---
DATE OF DISCHARGE: 09/23/2017 HOSPITAL COURSE: A 67-year-old gentleman who came in with nausea and vomiting. He was bringing up melena and hematochezia. The patient was also complaining of severe abdominal pain, had positive D-dimer. CTA was unremarkable. The patient was markedly dehydrated. He is a type 1 diabetic, some of his sugars did drop as he was unable eat quite enough; however, little by little, he gained strength back. He began to be able to eat and drink, hydrated. Blood sugars came under better control, and basically, he was discharged home for followup as an outpatient. IMPRESSION: Therefore, gastroenteritis, dehydration, type 1 diabetes, abdominal discomfort. The patient will be discharged home, followed up as an outpatient and make further evaluation on him as indicated. See MRAD. ACTIVITY: As tolerated. CANDI BUNCH MD DR: LENORA/tika JOB#: [id number] / [id number]
== END 2017-09-23 11:30 | disposition home or self-care (01) | DRG 392 ==
LOC: ER 11:03 → 1 SOUTH 15:00 → OBSVTOIN 15:03
PROVIDERS: ADMIT Family Medicine; ATTEND Family Medicine
DX: K52.9 Noninfective gastroenteritis and colitis, unspecified (principal); E10.36 Type 1 diabetes mellitus with diabetic cataract; Z89.611 Acquired absence of right leg above knee; K92.1 Melena; E10.65 Type 1 diabetes mellitus with hyperglycemia; E10.39 Type 1 diabetes mellitus with other diabetic ophthalmic complication; E78.00 Pure hypercholesterolemia, unspecified; E86.0 Dehydration; H40.9 Unspecified glaucoma; I10 Essential (primary) hypertension; I25.10 Atherosclerotic heart disease of native coronary artery without angina pectoris; R79.1 Abnormal coagulation profile; E78.5 Hyperlipidemia, unspecified; Z88.8 Allergy status to other drugs, medicaments and biological substances; Z88.6 Allergy status to analgesic agent; Z91.010 Allergy to peanuts; Z79.4 Long term (current) use of insulin; Z82.49 Family history of ischemic heart disease and other diseases of the circulatory system; Z83.3 Family history of diabetes mellitus; Z90.49 Acquired absence of other specified parts of digestive tract; Z95.5 Presence of coronary angioplasty implant and graft
CPT/HCPCS: 36415; 71010; 71275; 74020; 80048; 80053; 80061; 81003; 82947; 83605; 83690; 83735; 84443; 84484; 85025; 85379; 85610; 87040; 87804; 93005; 96361; 96374; G0379; J1650; J1815; J2405; J7040; Q9967; 99285-25; J7030

== ENCOUNTER 2017-10-24 18:02 | Inpatient (IN) | payer MEDICARE, BC ==
[~2017-10-24] VITALS: Ht 176.5 cm; Wt 87.3 kg
[2017-10-24] MEDS ORDERED: 0.9 % SODIUM CHLORIDE 10 ML DISP.SYRIN. IV PRN (18:30)
[2017-10-24] MEDS ORDERED: NOREPINEPHRINE BITARTRATE 8 MG in IV NORMAL SALINE 250ML 250 ML IV PRN (18:30)
--- NOTE | 2017-10-24 18:49 | PHYS DOC ---
Past History Past Medical History: Diabetes, Hypertension Past Surgical History: Appendectomy, Other Smoking: Non-smoker Alcohol Use: None Drug Use: None Adult General Chief Complaint Chief Complaint: FLU SYMPTOM HPI HPI Patient is a 67 year old male who presents with complaint of chills, bodyaches, cough, and shortness of breath. Patient states his symptoms started last night and it progressively worsened throughout the day today. The patient states that he has pain in his chest only when he coughs. Patient has history of hypertension and diabetes mellitus. Patient follows a Dr. Lewis for primary care. Patient states that he took ibuprofen at 4 PM prior to arrival. Denies nausea and vomiting. Patient is concerned that he may have influenza. Review of Systems Review of Systems Constitutional: Fever, chills[] Eyes: Denies change in visual acuity, redness, or eye pain [] HENT: Sore throat[] Respiratory: Cough, shortness of breath[] Cardiovascular: Pleuritic chest pain, denies edema[] GI: Denies abdominal pain, nausea, vomiting, bloody stools or diarrhea [] : Denies dysuria or hematuria [] Musculoskeletal: Body aches[] Integument: Denies rash or skin lesions [] Neurologic: Headache, denies focal weakness or sensory changes [] All other systems were reviewed and found to be within normal limits, except as documented in this note. Current Medications Current Medications Current Medications Medications (Trade) Dose Ordered Sig/Michel Start Time Stop Time Status Last Admin Dose Admin Norepinephrine Bitartrate 8 mg/ Sodium Chloride 258 ml @ 0 mls/hr CONT PRN 10/24/17 18:30 10/24/17 18:39 DC Sodium Chloride 2,130 ml @ 1,065 mls/hr Q2H 10/24/17 18:36 UNV Sodium Chloride (Normal Saline Flush) 10 ml QSHIFT PRN 10/24/17 18:30 Allergies Allergies Allergies Coded Allergies Type Severity Reaction Last Updated Verified aspirin Allergy Unknown Nausea and Vomiting 01/16/14 Yes nicotine Allergy Unknown Shortness of Air 01/16/14 Yes peanut Allergy Unknown Rash 12/24/13 Yes Uncoded Allergies Type Severity Reaction Last Updated Verified SUNTAN LOTION Allergy Unknown Rash 01/16/14 Physical Exam Physical Exam Constitutional: Alert, afebrile, appears ill. [] HENT: Normocephalic, atraumatic, bilateral external ears normal, oropharynx mildly erythematous, no oral exudates, nose normal. [] Eyes: PERRLA, EOMI, conjunctiva normal, no discharge. [] Neck: Normal range of motion, no tenderness, supple, no stridor. [] Cardiovascular: Tachycardia, regular rhythm, no murmur [] Lungs & Thorax: Mildly restricted air movement bilaterally, occasional rhonchi, no wheezes or rales[] Abdomen: Bowel sounds normal, soft, no tenderness, no masses, no pulsatile masses. [] Skin: Warm, dry, no erythema, no rash. [] Back: No tenderness, no CVA tenderness. [] Extremities: Right BKA, no cyanosis, no clubbing, ROM intact, no edema. [] Neurologic: Alert and oriented X 3, normal motor function, normal sensory function, no focal deficits noted. [] Current Patient Data Vital Signs Vital Signs Date Time Temp Pulse Resp B/P (MAP) Pulse Ox O2 Delivery O2 Flow Rate FiO2 10/24/17 18:02 98.9 131 18 96 Room Air Lab Results Laboratory Tests Test 10/24/17 19:02 White Blood Count 7.4 x10^3/uL Red Blood Count 4.85 x10^6/uL Hemoglobin 14.6 g/dL Hematocrit 42.0 % Mean Corpuscular Volume 87 fL Mean Corpuscular Hemoglobin 30 pg Mean Corpuscular Hemoglobin Concent 35 g/dL Red Cell Distribution Width 13.5 % Platelet Count 192 x10^3/uL Neutrophils (%) (Auto) 81 % Lymphocytes (%) (Auto) 8 % Monocytes (%) (Auto) 8 % Eosinophils (%) (Auto) 2 % Basophils (%) (Auto) 1 % Neutrophils # (Auto) 6.0 x10^3uL Lymphocytes # (Auto) 0.6 x10^3/uL Monocytes # (Auto) 0.6 x10^3/uL Eosinophils # (Auto) 0.2 x10^3/uL Basophils # (Auto) 0.0 x10^3/uL Sodium Level 138 mmol/L Potassium Level 3.7 mmol/L Chloride Level 103 mmol/L Carbon Dioxide Level 26 mmol/L Anion Gap 9 Blood Urea Nitrogen 15 mg/dL Creatinine 0.8 mg/dL Estimated GFR (Cockcroft-Gault) 97.0 BUN/Creatinine Ratio 19 Glucose Level 184 mg/dL Lactic Acid Level 1.8 mmol/L Calcium Level 9.0 mg/dL Total Bilirubin 0.7 mg/dL Aspartate Amino Transf (AST/SGOT) 28 U/L Alanine Aminotransferase (ALT/SGPT) 37 U/L Alkaline Phosphatase 105 U/L Creatine Kinase 103 U/L Creatine Kinase MB (Mass) 1.0 ng/mL Creatine Kinase MB Relative Index 1.0 % Troponin I Quantitative < 0.017 ng/mL Total Protein 7.4 g/dL Albumin 4.1 g/dL Albumin/Globulin Ratio 1.2 Influenza Type A (Rapid) Negative Influenza Type B (Rapid) Negative Current Medications Medications (Trade) Dose Ordered Sig/Michel Route PRN Reason Start Time Stop Time Status Last Admin Dose Admin Sodium Chloride (Normal Saline Flush) 10 ml QSHIFT PRN IV AFTER MEDS AND BLOOD DRAWS 10/24/17 18:30 Norepinephrine Bitartrate 8 mg/ Sodium Chloride 258 ml @ 0 mls/hr CONT PRN IV PER PROTOCOL 10/24/17 18:30 10/24/17 18:39 DC Sodium Chloride 2,130 ml @ 1,065 mls/hr Q2H IV 10/24/17 18:36 10/24/17 19:59 Albuterol Sulfate (Ventolin) 2.5 mg 1X ONCE NEB 10/24/17 19:15 10/24/17 19:16 DC 10/24/17 19:19 EKG EKG Interpreted by me: Heart rate 125, sinus tachycardia, normal intervals, normal axis, no acute ST/T-wave abnormalities present[] Radiology/Procedures Radiology/Procedures One view AP chest x-ray interpreted by me: Bilateral perihilar infiltrate, no interstitial edema or infiltrate, no effusions[] Course & Med Decision Making Course & Med Decision Making Pertinent Labs and Imaging studies reviewed. (See chart for details) The patient was started on IV fluids in the emergency department. Despite fluid challenge the patient continues to be tachycardic with a heart rate of 120 that appears to be sinus tachycardia on the monitor. The patient's lab work is otherwise unremarkable. The patient's symptoms appear to be consistent with influenza despite a negative flu test. I spoke with patient's primary physician , Dr. Lewis, and he agreed that patient would need admission for further treatment. He also agreed with empirically treating patient with Tamiflu which was initiated in the emergency department. Spoke with patient regarding plan of care and he was in agreement at time of admission. Dragon Disclaimer Dragon Disclaimer This electronic medical record was generated, in whole or in part, using a voice recognition dictation system. Departure Departure: Impression: Primary Impression: Tachycardia Additional Impressions: Upper respiratory infection Type 2 diabetes mellitus Disposition: 09 ADMITTED INPATIENT Admitting Physician: Balta Lewis Condition: GUARDED Referrals: BALTA LEWIS MD (PCP) Problem Qualifiers Additional Impressions: Upper respiratory infection URI type: unspecified URI Qualified Codes: J06.9 - Acute upper respiratory infection, unspecified Type 2 diabetes mellitus Diabetes mellitus complication status: with hyperglycemia Diabetes mellitus fpc insulin use: unspecified fpc insulin use status Qualified Codes: E11.65 - Type 2 diabetes mellitus with hyperglycemia ESDRAS LLANES MD Oct 24, 2017 18:49
[2017-10-24] MEDS ORDERED: ALBUTEROL SULFATE 2.5 MG/3 ML NEBU. NEB ONE (19:15)
[2017-10-24] MEDS: NORMAL SALINE IV SCH ×3 (19:18→22:48)
[2017-10-24 19:38] LABS: BASO % 1 % (0-3); EOS # 0.2 x10^3/uL (0.0-0.7); EOS % 2 % (0-3); HEMOGLOBIN 14.6 g/dL (13.0-17.5); LYMPH # 0.6 x10^3/uL (1.0-4.8); LYMPH % 8 % (24-48); MEAN CORPUSCULAR HEMOGLOBIN 30 pg (25-35); MEAN CORPUSCULAR HGB CONC 35 g/dL (31-37); MEAN CORPUSCULAR VOLUME 87 fL (79-100); MONO # 0.6 x10^3/uL (0.0-1.1); MONO % 8 % (0-9); NEUT % 81 % (31-73); PLATELET COUNT 192 x10^3/uL (140-400); RED BLOOD COUNT 4.85 x10^6/uL (4.30-5.70); RED CELL DISTRIBUTION WIDTH 13.5 % (11.5-14.5); WHITE BLOOD COUNT 7.4 x10^3/uL (4.0-11.0)
--- NOTE | 2017-10-24 19:49 | EKG ---
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
[2017-10-24 19:52] LABS: INFLUENZA A PATIENT NEGATIVE (NEGATIVE); INFLUENZA B PATIENT NEGATIVE (NEGATIVE)
[2017-10-24 19:58] LABS: ALBUMIN 4.1 g/dL (3.4-5.0); ALBUMIN/GLOBULIN RATIO 1.2 (1.0-1.7); CREATININE 0.8 mg/dL (0.7-1.3); POTASSIUM 3.7 mmol/L (3.5-5.1); TOTAL BILIRUBIN 0.7 mg/dL (0.2-1.0); TOTAL PROTEIN 7.4 g/dL (6.4-8.2)
[2017-10-24] MEDS: IV NORMAL SALINE 1,000ML 1,000 ML IV SCH (20:43)
[2017-10-24] MEDS ORDERED: ONDANSETRON PF 4 MG/2 ML VIAL. IV PRN (20:45)
[2017-10-24] MEDS: ACETAMINOPHEN 325 MG TABLET PO PRN (20:49)
[2017-10-24] MEDS: OSELTAMIVIR 75 MG CAPSULE PO SCH (20:49)
[2017-10-24 22:14] LABS: BILIRUBIN,URINE NEG (NEG); CLARITY,URINE CLEAR; COLOR,URINE YELLOW; GLUCOSE,URINE >=1000 mg/dL (NEG); NITRITE,URINE NEG (NEG); UROBILINOGEN,URINE 0.2 mg/dL (0.2 mg/dL)
[2017-10-24 22:15] LABS: BACTERIA,URINE 0 /HPF (0-FEW); SQUAMOUS EPITHELIAL CELL,UR FEW /LPF
[2017-10-24 23:01] VITALS: BP 132/70
[2017-10-24] MEDS ORDERED: DIPH25CA58 PO (23:30)
[2017-10-24] MEDS ORDERED: KETO15CR2 TP (23:30)
[2017-10-24] MEDS ORDERED: IBUP200T44 PO (23:30)
[2017-10-24] MEDS ORDERED: FLUT16SP21 NS (23:30)
[2017-10-24] MEDS ORDERED: NAPR500T4 PO (23:30)
[2017-10-24] MEDS ORDERED: CYAN10005 PO (23:39)
[2017-10-24] MEDS ORDERED: INSU100V31 SQ ×3 (23:44)
[2017-10-24] MEDS ORDERED: MECLIZINE 12.5 MG TABLET. PO PRN (23:45)
[2017-10-25] MEDS ORDERED: BENZOCAINE/MENTHOL LOZNGE 18'S BOX. PO PRN
[2017-10-25] MEDS ORDERED: DEXTROSE 50% 25 GM / 50ML DISP.SYRIN. IV PRN (00:15)
[2017-10-25] MEDS: amLODIPine BESYLATE 5 MG TABLET PO SCH ×2 (00:21→20:33)
[2017-10-25] MEDS: ATORVASTATIN CALCIUM 20 MG TABLET PO SCH ×2 (00:21→20:32)
[2017-10-25] MEDS: ACETAMINOPHEN 325 MG TABLET PO PRN (00:21)
[2017-10-25] MEDS: INSULIN DETEMIR 300 UNITS/3 ML INSULN.PEN. SQ SCH ×2 (00:47→20:43)
[2017-10-25] MEDS: IV NORMAL SALINE 1,000ML 1,000 ML IV SCH ×3 (03:11→17:37)
[2017-10-25 05:01] VITALS: BP 119/63
[2017-10-25] MEDS ORDERED: IPRATRPIUM/ALBUTEROL 0.5/2.5MG 3 ML NEBU. ONE (05:10)
[2017-10-25] MEDS: IPRATRPIUM/ALBUTEROL 0.5/2.5MG 3 ML NEBU. NEB SCH ×4 (06:11→22:21)
[2017-10-25 06:29] LABS: BASO % 1 % (0-3); EOS # 0.1 x10^3/uL (0.0-0.7); EOS % 2 % (0-3); HEMATOCRIT 37.5 % (39.0-53.0); HEMOGLOBIN 12.9 g/dL (13.0-17.5); LYMPH # 0.7 x10^3/uL (1.0-4.8); LYMPH % 14 % (24-48); MEAN CORPUSCULAR HEMOGLOBIN 30 pg (25-35); MEAN CORPUSCULAR HGB CONC 34 g/dL (31-37); MEAN CORPUSCULAR VOLUME 88 fL (79-100); MONO # 0.7 x10^3/uL (0.0-1.1); MONO % 15 % (0-9); NEUT # 3.3 x10^3uL (1.8-7.7); NEUT % 69 % (31-73); PLATELET COUNT 139 x10^3/uL (140-400); RED BLOOD COUNT 4.24 x10^6/uL (4.30-5.70); RED CELL DISTRIBUTION WIDTH 13.7 % (11.5-14.5); WHITE BLOOD COUNT 4.9 x10^3/uL (4.0-11.0)
[2017-10-25 06:48] LABS: CALCIUM 8.5 mg/dL (8.5-10.1); CREATININE 0.8 mg/dL (0.7-1.3); POTASSIUM 4.1 mmol/L (3.5-5.1)
--- NOTE | 2017-10-25 07:25 | RAD ---
Single view chest 10/24/2017 Clinical indication: Cough, flulike symptoms. Comparison: 09/21/2017. Findings: Hypoinflation of both lungs. There is prominence of the central pulmonary vasculature. No pleural effusion, pneumothorax or focal consolidation. Impression: 1. Prominence of the central pulmonary vasculature, likely related to hypoinflation. 2. No consolidating pneumonia.
[2017-10-25] MEDS: INSULIN ASPART 300 UNITS/3 ML INSULN.PEN SQ SCH ×7 (08:02→20:44)
[2017-10-25] MEDS: PANTOPRAZOLE 40 MG TABLET. PO SCH (08:10)
[2017-10-25] MEDS: OSELTAMIVIR 75 MG CAPSULE PO SCH ×2 (08:11→20:32)
[2017-10-25] MEDS: CYANOCOBALAMIN (VITAMIN B-12) 1,000 MCG TABLET. PO SCH ×2 (08:11→20:31)
[2017-10-25] MEDS: NAPROXEN 500 MG TABLET PO SCH ×2 (08:11→20:33)
[2017-10-25] MEDS: MAGNESIUM OXIDE 400 MG TABLET PO SCH ×2 (08:11→20:33)
[2017-10-25 08:48] VITALS: BP 146/73
[2017-10-25] MEDS: KETOCONAZOLE 2% TOPICAL CREAM 30GM TUBE. TP SCH (10:57)
[2017-10-25 11:27] VITALS: BP 135/67
[2017-10-25 15:15] VITALS: BP 120/71
[2017-10-25 19:25] VITALS: BP 145/83
--- NOTE | 2017-10-25 19:30 | HP ---
ADMIT DATE: 10/24/2017 HISTORY OF PRESENT ILLNESS: This 67-year-old male came in through the Emergency Room. He has a long history of diabetes. He has been feeling ill for the last 3-4 days with body aches, fever, cough, chills, and shortness of breath. The patient denied any nausea or vomiting. The patient was admitted to the hospital for further evaluation, rehydration and further evaluation of possible flu. PAST MEDICAL AND SURGICAL HISTORY: Has a long history of type 1 diabetes. He has had an [id number] amputation of his right knee, appendectomy, hypertension, aortic insufficiency, glaucoma, cataracts, pancreatic surgery, musculoskeletal disorder, orthopedic surgery with prosthesis as noted. Influenza vaccination is on 10/24/2017. FAMILY HISTORY: Uterine cancer in the sister, heart attack in the father, diabetes in father, mother, and sister. Congestive heart failure in mother along with history of use of a cardiac pacemaker. ALLERGIES: He has allergies or sensitivities to SUN TANNING LOTION, ASPIRIN, NICOTINE AND PEANUTS. HOME MEDICATIONS: Include Norvasc with Lipitor 5/80 daily, vitamin B12, fluticasone nasal spray, insulin, ketoconazole 15 grams p.r.n., lisinopril 10 mg a day, magnesium oxide, meclizine 25 mg, naproxen 500 b.i.d., niacin 500 mg and Protonix 40. SOCIAL HISTORY: The patient denies smoking, alcohol or drug use. REVIEW OF SYSTEMS: As noted above in the HPI. Denies chest pain or abdominal pain. Does have just generalized weakness, feels ill, achiness all over. PHYSICAL EXAMINATION: VITAL SIGNS: Temperature 100.4, pulse 120, blood pressure 130/70, respiratory 18, ____ O2 sat on room air. GENERAL: The patient is ill appearing white male in moderate amount of distress. HEENT: Head is atraumatic, normocephalic. Eyes: PERRLA without jaundice. Mouth and throat were normal. NECK: Supple without JVD or carotid bruits. No thyromegaly. LUNGS: The patient's lungs were diminished throughout, but basically poor movement of air. CARDIOVASCULAR: Regular sinus rhythm, S1, S2. Tachycardic. ABDOMEN: Soft, nontender, no rebounding, no guarding. Positive bowel sounds, no hepatosplenomegaly was noted. EXTREMITIES: No clubbing, cyanosis, or edema. No rashes or swollen joints. LABORATORY DATA: White count 7, increased neutrophils. The patient's blood sugars in the 300s. Serology actually was negative for influenza B. IMPRESSION: Dehydration, fever, chills, flu-like syndrome. PLAN: Continue to monitor the patient and currently make further evaluation on him as indicated, IV fluids, and we will continue to monitor his blood sugars and make further evaluation on him as indicated. CANDI BUNCH MD DR: LENORA/tika JOB#: [id number] / [id number]
[2017-10-25] MEDS: FLUTICASONE 50MCG/NASAL SPRAY 16GM BOTTLE. NS SCH (20:30)
[2017-10-25] MEDS: LISINOPRIL 10 MG TABLET PO SCH (20:32)
[2017-10-25] MEDS: NIACIN ER 500 MG TABLET.ER PO SCH (20:33)
[2017-10-25 23:25] VITALS: BP 104/50
[2017-10-26] MEDS: IV NORMAL SALINE 1,000ML 1,000 ML IV SCH ×2 (04:51→12:56)
[2017-10-26 05:35] VITALS: BP 118/68
[2017-10-26] MEDS: IPRATRPIUM/ALBUTEROL 0.5/2.5MG 3 ML NEBU. NEB SCH ×2 (06:05→10:54)
[2017-10-26 07:00] LABS: CALCIUM 8.4 mg/dL (8.5-10.1); CREATININE 0.6 mg/dL (0.7-1.3); GFR 135.2; POTASSIUM 3.4 mmol/L (3.5-5.1)
[2017-10-26 07:11] LABS: HEMATOCRIT 34.4 % (39.0-53.0); RED BLOOD COUNT 3.95 x10^6/uL (4.30-5.70); RED CELL DISTRIBUTION WIDTH 13.7 % (11.5-14.5); WHITE BLOOD COUNT 4.1 x10^3/uL (4.0-11.0)
[2017-10-26] MEDS: INSULIN ASPART 300 UNITS/3 ML INSULN.PEN SQ SCH ×7 (07:30→20:47)
[2017-10-26] MEDS: PANTOPRAZOLE 40 MG TABLET. PO SCH (08:00)
[2017-10-26] MEDS: OSELTAMIVIR 75 MG CAPSULE PO SCH (08:06)
[2017-10-26] MEDS: CYANOCOBALAMIN (VITAMIN B-12) 1,000 MCG TABLET. PO SCH ×2 (08:06→20:38)
[2017-10-26] MEDS: MAGNESIUM OXIDE 400 MG TABLET PO SCH ×2 (08:06→20:38)
[2017-10-26] MEDS: NAPROXEN 500 MG TABLET PO SCH ×2 (08:06→20:37)
[2017-10-26 09:40] VITALS: BP 135/74
[2017-10-26] MEDS: KETOCONAZOLE 2% TOPICAL CREAM 30GM TUBE. TP SCH (10:03)
[2017-10-26 16:15] VITALS: BP 143/80
[2017-10-26 19:11] VITALS: BP 128/66
[2017-10-26] MEDS: FLUTICASONE 50MCG/NASAL SPRAY 16GM BOTTLE. NS SCH (20:37)
[2017-10-26] MEDS: NIACIN ER 500 MG TABLET.ER PO SCH (20:37)
[2017-10-26] MEDS: amLODIPine BESYLATE 5 MG TABLET PO SCH (20:38)
[2017-10-26] MEDS: LISINOPRIL 10 MG TABLET PO SCH (20:38)
[2017-10-26] MEDS: ATORVASTATIN CALCIUM 20 MG TABLET PO SCH (20:38)
[2017-10-26] MEDS: INSULIN DETEMIR 300 UNITS/3 ML INSULN.PEN. SQ SCH (20:46)
[2017-10-26 22:27] VITALS: BP 123/69
[2017-10-27 05:24] VITALS: BP 131/74
[2017-10-27 06:44] LABS: CALCIUM 8.6 mg/dL (8.5-10.1); CREATININE 0.5 mg/dL (0.7-1.3); GFR 166.9; POTASSIUM 3.6 mmol/L (3.5-5.1)
[2017-10-27 06:49] LABS: HEMATOCRIT 35.7 % (39.0-53.0); HEMOGLOBIN 12.4 g/dL (13.0-17.5); RED BLOOD COUNT 4.12 x10^6/uL (4.30-5.70); RED CELL DISTRIBUTION WIDTH 13.1 % (11.5-14.5); WHITE BLOOD COUNT 4.2 x10^3/uL (4.0-11.0)
[2017-10-27] MEDS: INSULIN ASPART 300 UNITS/3 ML INSULN.PEN SQ SCH ×4 (07:30→12:14)
[2017-10-27] MEDS: CYANOCOBALAMIN (VITAMIN B-12) 1,000 MCG TABLET. PO SCH (09:00)
[2017-10-27] MEDS: NAPROXEN 500 MG TABLET PO SCH (09:00)
[2017-10-27] MEDS: PANTOPRAZOLE 40 MG TABLET. PO SCH (09:00)
[2017-10-27] MEDS: MAGNESIUM OXIDE 400 MG TABLET PO SCH (09:00)
[2017-10-27] MEDS: KETOCONAZOLE 2% TOPICAL CREAM 30GM TUBE. TP SCH (09:01)
[2017-10-27 10:46] VITALS: BP 150/88
[2017-10-27 15:51] VITALS: BP 126/78
--- NOTE | 2017-10-27 21:22 | PN ---
DATE: 10/26/2017 SUBJECTIVE: The patient had acute asthmatic attack. The patient is somewhat better. He is breathing a little bit easier than he has been. PHYSICAL EXAMINATION: VITAL SIGNS: The patient's blood pressure 123/70, respirations 20, pulse 96, temperature 98.4. GENERAL: The patient is alert and oriented. LUNGS: Diminished, some expiratory wheeze, but improves. CARDIOVASCULAR: Regular sinus rhythm. ABDOMEN: Soft, nontender. EXTREMITIES: No clubbing, cyanosis or edema. NEUROLOGIC: Intact. IMPRESSION: ____ acute asthmatic attack, dehydration, fever, chills and flu-like syndrome, history of sinus tachycardia and type 1 diabetes. PLAN: Continue present plan and continue breathing treatments. Hopefully, ready for discharge in the a.m. CANDI BUNCH MD DR: LENORA/tika JOB#: [id number] / [id number]
--- NOTE | 2017-10-27 23:26 | DS ---
DATE OF DISCHARGE: 10/27/2017 HOSPITAL COURSE: A 67-year-old gentleman who came in with flu-like symptoms and respiratory distress as well as markedly dehydrated. The patient had been 3-4 days prior to admission with fever, chills, coughing, shortness of breath. The patient was admitted to the hospital at a temperature of 100.5 with a pulse of greater than 130-140 at times. The patient was markedly dehydrated. He was given IV fluids, aggressive pulmonary toilet. His pulse finally came down into a reasonable range in the 60s from 130s. Blood pressure 150/88, afebrile. Otherwise, the patient did well with breathing treatments. The patient's hemoglobin 12 and 35 and white count 4. His electrolytes were basically stable. He is a type 1 diabetic and those were monitored as well. In any case, the patient made good progress during the rest of his hospitalization. IMPRESSION: Flu-like syndrome with acute respiratory distress, sinus tachycardia secondary to moderate dehydration, generalized weakness, type 1 diabetes. PLAN: The patient will be discharged home. See MRAD, monitor his blood sugar at home and make further evaluation on him as indicated per those results. CANDI BUNCH MD DR: LENORA/tika JOB#: [id number] / [id number]
== END 2017-10-27 17:12 | disposition home or self-care (01) | DRG 203 ==
LOC: ER 18:02 → 1 SOUTH 20:25
PROVIDERS: ADMIT Family Medicine; ATTEND Family Medicine
DX: J45.909 Unspecified asthma, uncomplicated (principal); E10.65 Type 1 diabetes mellitus with hyperglycemia; Z89.611 Acquired absence of right leg above knee; R06.03 Acute respiratory distress; E86.0 Dehydration; H40.9 Unspecified glaucoma; I10 Essential (primary) hypertension; I35.1 Nonrheumatic aortic (valve) insufficiency; Z82.49 Family history of ischemic heart disease and other diseases of the circulatory system; Z83.3 Family history of diabetes mellitus; Z90.49 Acquired absence of other specified parts of digestive tract; Z88.2 Allergy status to sulfonamides; Z88.8 Allergy status to other drugs, medicaments and biological substances; Z88.5 Allergy status to narcotic agent; Z91.010 Allergy to peanuts; Z79.4 Long term (current) use of insulin; Z80.59 Family history of malignant neoplasm of other urinary tract organ
CPT/HCPCS: 36415; 71045; 80048; 80053; 81001; 82553; 82947; 83605; 84484; 85025; 85027; 87040; 87804; 93005; 94640; 96361; 96374; J1815; J2405; J7613; J7620; 99285-25; J7030

== ENCOUNTER → 2018-06-21 | Outpatient (CLI) | payer MEDICARE, BC ==
[~2018-06-21] MED LIST changes: +CYAN10005 PO; +DIPH25CA58 PO; +FLUT16SP21 NS; +IBUP200T44 PO; +INSU100V31 SQ; +IOHEXOL 240 MG/ML 50ML VIAL. ONE; +IOHEXOL 300 MG/ML 75 ML VIAL. IV ONE; +KETO15CR2 TP; +NAPR-514 PO
--- NOTE | 2018-06-21 14:38 | RAD ---
Examination: CT of the abdomen pelvis with IV contrast HISTORY: History of left groin pain COMPARISON: 03/17/2012 TECHNIQUE: Axial CT images of the abdomen pelvis were performed with IV contrast and oral contrast. Coronal and sagittal reformats are performed Exposure: One or more of the following individualized dose reduction techniques were utilized for this examination: 1. Automated exposure control 2. Adjustment of the mA and/or kV according to patient size 3. Use of iterative reconstruction technique FINDINGS: Minimal bibasilar lung atelectasis. No evidence of free air identified in the abdomen. The visualized liver, spleen, adrenals grossly appears unremarkable. The gallbladder is mildly distended. The stomach is mildly distended. The visualized pancreas grossly appears unremarkable. The small bowel is nondilated. Feces and gas noted throughout the colon. The bilateral kidneys enhance symmetrically. Small cystic structure identified in the left kidney with largest measuring 5 mm likely cysts. Urinary bladder is mildly distended. Moderate aortic atherosclerosis. Bony fusion identified at the pubic symphysis. Moderate degenerative changes lumbar spine. Small benign-appearing lymph nodes identified in the left inguinal region with the largest measuring 1.2 cm IMPRESSION: 1. No acute intra-abdominal findings. No evidence of inguinal hernia. Electronically signed by: Conor Hernandez MD (06/21/2018 2:34 PM) [id number]
== END | disposition home or self-care (01) ==
LOC: CT 11:50
PROVIDERS: ATTEND Surgery
DX: J98.11 Atelectasis (principal); I70.0 Atherosclerosis of aorta; K82.8 Other specified diseases of gallbladder; I12.9 Hypertensive chronic kidney disease with stage 1 through stage 4 chronic kidney disease, or unspecified chronic kidney disease; E11.22 Type 2 diabetes mellitus with diabetic chronic kidney disease; N18.9 Chronic kidney disease, unspecified; E78.00 Pure hypercholesterolemia, unspecified; J45.909 Unspecified asthma, uncomplicated; I25.10 Atherosclerotic heart disease of native coronary artery without angina pectoris; Z95.5 Presence of coronary angioplasty implant and graft; Z89.611 Acquired absence of right leg above knee; Z90.49 Acquired absence of other specified parts of digestive tract; Z82.49 Family history of ischemic heart disease and other diseases of the circulatory system; Z80.59 Family history of malignant neoplasm of other urinary tract organ; Z83.3 Family history of diabetes mellitus
CPT/HCPCS: 74177; Q9966; Q9967

== ENCOUNTER 2018-11-18 18:57 | Emergency (ER) | payer MEDICARE, BC ==
[~2018-11-18] VITALS: Ht 176.5 cm; Wt 85.3 kg
[~2018-11-18 18:57] MED LIST changes: -CHOL4000 PO; +CHOL40003 PO; -IOHEXOL 240 MG/ML 50ML VIAL. ONE; -IOHEXOL 300 MG/ML 75 ML VIAL. IV ONE
--- NOTE | 2018-11-18 19:21 | ED.ADGEN ---
Past History Past Medical History: Diabetes, Hypertension, TIA, Other Past Surgical History: Appendectomy, Other Smoking: Non-smoker Alcohol Use: Occasionally Drug Use: None Adult General Chief Complaint Chief Complaint ".. Dr. Lewis sent me over for my hypoglycemia...".." I started getting sick yesterday...Nausea and Vomiting ..yesterday...sugars high... 325/ today they where low..."...".. Now I am having some constipation.. " [facility] HPI Patient is a 68 year old male who presents with above hx and complaints of hypoglycemia. Patient has a history of diabetes. Patient has periodically elevated glucose levels as well as hypoglycemia. Patient does not have episodes of hypoglycemia unawareness. Patient reports that even if the sugar drops low at night he awakens. Patient has had recent episodes of constipation , and some recent GI upset. Patient states he is currently over his GI symptoms. He has been passing air and stool. Patient also complaining of some nasal congestion and itchy throat. No history of bad food intake. No history of travel. No history of specific immunosuppression. 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 Sinclair tomorrow. Patient normally follows with Dr. Lewis. Review of Systems Review of Systems Constitutional: Denies fever or chills [] Eyes: Denies change in visual acuity, redness, or eye pain [] HENT: History of nasal congestion and sore throat [] Respiratory: Denies cough or shortness of breath [] Cardiovascular: No additional information not addressed in HPI [] GI: Denies abdominal pain, , vomiting, bloody stools or diarrhea []some recent nausea and constipation : Denies dysuria or hematuria [] Musculoskeletal: Denies back pain or joint pain [] Integument: Denies rash or skin lesions [] Neurologic: Denies headache, focal weakness or sensory changes [] Endocrine: Denies polyuria or polydipsia [ Had ]episodes of hypoglycemia and hyperglycemia All other systems were reviewed and found to be within normal limits, except as documented in this note. Family History Family History Noncontributory Current Medications Current Medications Current Medications Medications (Trade) Dose Ordered Sig/Michel Start Time Stop Time Status Last Admin Dose Admin Aspirin (Children'S Aspirin) 324 mg 1X ONCE 11/18/18 19:45 11/18/18 19:46 DC 11/18/18 20:29 324 MG Lactated Ringer's 1,000 ml @ 1,000 mls/hr Q1H 11/18/18 19:45 11/18/18 20:44 DC 11/18/18 20:43 1,000 MLS/HR Ondansetron HCl (Zofran) 4 mg STK-MED ONCE 11/18/18 20:37 11/19/18 02:19 DC Allergies Allergies Allergies Coded Allergies Type Severity Reaction Last Updated Verified aspirin Allergy Intermediate Nausea and Vomiting 11/18/18 Yes nicotine Allergy Intermediate Shortness of Air 11/18/18 Yes peanut Allergy Intermediate Rash 11/18/18 Yes Uncoded Allergies Type Severity Reaction Last Updated Verified SUNTAN LOTION Allergy Unknown Rash 01/16/14 Physical Exam Physical Exam Constitutional: no acute distress, non-toxic appearance. [] HENT: Normocephalic, atraumatic, bilateral external ears normal, oropharynx moist, no oral exudates, nose mild nasal congestion and clear rhinorrhea Eyes: PERRLA, EOMI, conjunctiva normal, no discharge. [] Neck: Normal range of motion, no tenderness, supple, no stridor. [] Cardiovascular:Heart rate regular rhythm, no murmur [] Lungs & Thorax: Bilateral breath sounds equal at apex with few scattered wheezes auscultation [] Abdomen: Bowel sounds normal, soft, no focal areas of tenderness, no masses, no pulsatile masses. Mild distention. No rebound. Old surgery scars Skin: Warm, dry, no erythema, no rash. [] Back: No tenderness, no CVA tenderness. [] Extremities: No tenderness, no cyanosis, no clubbing, ROM intact, no edema. [] No psoas Neurologic: Alert and oriented X 3, normal motor function, normal sensory function, no focal deficits noted. [] Psychologic: Affect normal, judgement normal, mood normal. [] Current Patient Data Vital Signs Vital Signs Date Time Temp Pulse Resp B/P (MAP) Pulse Ox O2 Delivery O2 Flow Rate FiO2 11/18/18 23:12 94 18 136/72 (93) 92 Room Air 11/18/18 19:11 98.4 Lab Results Laboratory Tests Test 11/18/18 19:15 11/18/18 19:16 11/18/18 20:35 11/18/18 22:40 Glucose (Fingerstick) 105 mg/dL (70-99) H White Blood Count 7.5 x10^3/uL (4.0-11.0) Red Blood Count 4.72 x10^6/uL (4.30-5.70) Hemoglobin 14.3 g/dL (13.0-17.5) Hematocrit 41.3 % (39.0-53.0) Mean Corpuscular Volume 88 fL (79-100) Mean Corpuscular Hemoglobin 30 pg (25-35) Mean Corpuscular Hemoglobin Concent 35 g/dL (31-37) Red Cell Distribution Width 13.5 % (11.5-14.5) Platelet Count 248 x10^3/uL (140-400) Neutrophils (%) (Auto) 64 % (31-73) Lymphocytes (%) (Auto) 24 % (24-48) Monocytes (%) (Auto) 10 % (0-9) H Eosinophils (%) (Auto) 2 % (0-3) Basophils (%) (Auto) 1 % (0-3) Neutrophils # (Auto) 4.8 x10^3uL (1.8-7.7) Lymphocytes # (Auto) 1.8 x10^3/uL (1.0-4.8) Monocytes # (Auto) 0.7 x10^3/uL (0.0-1.1) Eosinophils # (Auto) 0.1 x10^3/uL (0.0-0.7) Basophils # (Auto) 0.1 x10^3/uL (0.0-0.2) Prothrombin Time 10.4 SEC (9.4-11.4) Prothrombin Time INR 1.0 (0.9-1.1) PTT 22 SEC (23-33) L Sodium Level 138 mmol/L (136-145) Potassium Level 3.5 mmol/L (3.5-5.1) Chloride Level 101 mmol/L (98-107) Carbon Dioxide Level 28 mmol/L (21-32) Anion Gap 9 (6-14) Blood Urea Nitrogen 25 mg/dL (8-26) Creatinine 0.7 mg/dL (0.7-1.3) Estimated GFR (Cockcroft-Gault) 112.8 Glucose Level 94 mg/dL (70-99) Calcium Level 9.2 mg/dL (8.5-10.1) Magnesium Level 1.5 mg/dL (1.8-2.4) L Total Bilirubin 0.7 mg/dL (0.2-1.0) Direct Bilirubin 0.2 mg/dL (0.0-0.2) Aspartate Amino Transferase (AST) 21 U/L (15-37) Alanine Aminotransferase (ALT) 28 U/L (16-63) Alkaline Phosphatase 100 U/L (46-116) Creatine Kinase 75 U/L (39-308) Creatine Kinase MB (Mass) 1.2 ng/mL (0.0-3.6) Creatine Kinase MB Relative Index 1.6 % (0-4) Troponin I Quantitative < 0.017 ng/mL (0-0.055) HQ-Evv-X-Type Natriuretic Peptide 24 pg/mL (0-124) Total Protein 7.0 g/dL (6.4-8.2) Albumin 4.3 g/dL (3.4-5.0) Amylase Level 72 U/L (25-115) Lipase 94 U/L (73-393) Influenza Type A (Rapid) Negative (NEGATIVE) Influenza Type B (Rapid) Negative (NEGATIVE) Group A Streptococcus Rapid Negative (NEGATIVE) Urine Collection Type Unknown Urine Color Yellow Urine Clarity Clear Urine pH 7.0 Urine Specific [place] 1.015 Urine Protein Neg (NEG-TRACE) Urine Glucose (UA) 100 mg/dL (NEG) Urine Ketones (Stick) 40 mg/dL (NEG) Urine Blood Trace (NEG) Urine Nitrite Neg (NEG) Urine Bilirubin Neg (NEG) Urine Urobilinogen Dipstick 0.2 mg/dL (0.2 mg/dL) Urine Leukocyte Esterase Neg (NEG) Urine RBC 0 /HPF (0-2) Urine WBC 1-4 /HPF (0-4) Urine Squamous Epithelial Cells None /LPF Urine Bacteria 0 /HPF (0-FEW) Urine Mucus Slight /LPF Urine Opiates Screen Neg (NEG) Urine Methadone Screen Neg (NEG) Urine Barbiturates Neg (NEG) Urine Phencyclidine Screen Neg (NEG) Urine Amphetamine/Methamphetamine Neg (NEG) Urine Benzodiazepines Screen Neg (NEG) Urine Cocaine Screen Neg (NEG) Urine Cannabinoids Screen Pos (NEG) Urine Ethyl Alcohol Neg (NEG) Test 11/18/18 23:28 Glucose (Fingerstick) 260 mg/dL (70-99) H EKG EKG My interpretation of EKG shows a sinus rhythm at 85. There is some nonspecific contour abnormalities anterior lateral leads. No findings acute STEMI of contralateral changes.[] Radiology/Procedures Radiology/Procedures My interpretation of abdomen film shows no acute cardiopulmonary findings. No free air in the diaphragm. Does have increased stool.[] Course & Med Decision Making Course & Med Decision Making Pertinent Labs and Imaging studies reviewed. (See chart for details) Patient tolerated by mouth well. Recheck his sugars were elevated on recheck it at 260. Patient reports he felt much better and wanted be discharged home. Patient advised to follow-up with Dr. Sinclair this morning. Advised patient that he may want to consider 30 mL of milk of magnesia for constipation and a low magnesium reading of 1.5. Encouraged patient to stop smoking. Patient return if any concerns. Patient follow-up primary care. Patient instructed increased constipation or findings of increased abdomen pain or any symptoms of obstruction will need to have reevaluation. [] Final Impression Final Impression 1. Hx. of Hypoglycemia 2. Hx. of Dm[] 3. History of constipation 4. History of marijuana use 5. Viral syndrome Dragon Disclaimer Dragon Disclaimer This electronic medical record was generated, in whole or in part, using a voice recognition dictation system. Dragon Disclaimer This chart was dictated in whole or in part using Voice Recognition software in a busy, high-work load, and often noisy Emergency Department environment. It may contain unintended and wholly unrecognized errors or omissions. Discharge Summary Visit Information Final Diagnosis Problems Medical Problems: (1) Hypoglycemia Status: Acute Brief Hospital Course Allergies Allergies Coded Allergies Type Severity Reaction Last Updated Verified aspirin Allergy Intermediate Nausea and Vomiting 11/18/18 Yes nicotine Allergy Intermediate Shortness of Air 11/18/18 Yes peanut Allergy Intermediate Rash 11/18/18 Yes Uncoded Allergies Type Severity Reaction Last Updated Verified SUNTAN LOTION Allergy Unknown Rash 01/16/14 Vital Signs Vital Signs Date Time Temp Pulse Resp B/P (MAP) Pulse Ox O2 Delivery O2 Flow Rate FiO2 11/18/18 23:12 94 18 136/72 (93) 92 Room Air 11/18/18 19:11 98.4 Lab Results Laboratory Tests Test 11/18/18 19:15 11/18/18 19:16 11/18/18 20:35 11/18/18 22:40 Glucose (Fingerstick) 105 mg/dL (70-99) White Blood Count 7.5 x10^3/uL (4.0-11.0) Red Blood Count 4.72 x10^6/uL (4.30-5.70) Hemoglobin 14.3 g/dL (13.0-17.5) Hematocrit 41.3 % (39.0-53.0) Mean Corpuscular Volume 88 fL (79-100) Mean Corpuscular Hemoglobin 30 pg (25-35) Mean Corpuscular Hemoglobin Concent 35 g/dL (31-37) Red Cell Distribution Width 13.5 % (11.5-14.5) Platelet Count 248 x10^3/uL (140-400) Neutrophils (%) (Auto) 64 % (31-73) Lymphocytes (%) (Auto) 24 % (24-48) Monocytes (%) (Auto) 10 % (0-9) Eosinophils (%) (Auto) 2 % (0-3) Basophils (%) (Auto) 1 % (0-3) Neutrophils # (Auto) 4.8 x10^3uL (1.8-7.7) Lymphocytes # (Auto) 1.8 x10^3/uL (1.0-4.8) Monocytes # (Auto) 0.7 x10^3/uL (0.0-1.1) Eosinophils # (Auto) 0.1 x10^3/uL (0.0-0.7) Basophils # (Auto) 0.1 x10^3/uL (0.0-0.2) Prothrombin Time 10.4 SEC (9.4-11.4) Prothromb Time International Ratio 1.0 (0.9-1.1) Activated Partial Thromboplast Time 22 SEC (23-33) Sodium Level 138 mmol/L (136-145) Potassium Level 3.5 mmol/L (3.5-5.1) Chloride Level 101 mmol/L (98-107) Carbon Dioxide Level 28 mmol/L (21-32) Anion Gap 9 (6-14) Blood Urea Nitrogen 25 mg/dL (8-26) Creatinine 0.7 mg/dL (0.7-1.3) Estimated GFR (Cockcroft-Gault) 112.8 Glucose Level 94 mg/dL (70-99) Calcium Level 9.2 mg/dL (8.5-10.1) Magnesium Level 1.5 mg/dL (1.8-2.4) Total Bilirubin 0.7 mg/dL (0.2-1.0) Direct Bilirubin 0.2 mg/dL (0.0-0.2) Aspartate Amino Transf (AST/SGOT) 21 U/L (15-37) Alanine Aminotransferase (ALT/SGPT) 28 U/L (16-63) Alkaline Phosphatase 100 U/L (46-116) Creatine Kinase 75 U/L (39-308) Creatine Kinase MB (Mass) 1.2 ng/mL (0.0-3.6) Creatine Kinase MB Relative Index 1.6 % (0-4) Troponin I Quantitative < 0.017 ng/mL (0-0.055) EY-Wiy-D-Type Natriuretic Peptide 24 pg/mL (0-124) Total Protein 7.0 g/dL (6.4-8.2) Albumin 4.3 g/dL (3.4-5.0) Amylase Level 72 U/L (25-115) Lipase 94 U/L (73-393) Influenza Type A (Rapid) Negative (NEGATIVE) Influenza Type B (Rapid) Negative (NEGATIVE) Group A Streptococcus Rapid Negative (NEGATIVE) Urine Collection Type Unknown Urine Color Yellow Urine Clarity Clear Urine pH 7.0 Urine Specific [place] 1.015 Urine Protein Neg (NEG-TRACE) Urine Glucose (UA) 100 mg/dL (NEG) Urine Ketones (Stick) 40 mg/dL (NEG) Urine Blood Trace (NEG) Urine Nitrite Neg (NEG) Urine Bilirubin Neg (NEG) Urine Urobilinogen Dipstick 0.2 mg/dL (0.2 mg/dL) Urine Leukocyte Esterase Neg (NEG) Urine RBC 0 /HPF (0-2) Urine WBC 1-4 /HPF (0-4) Urine Squamous Epithelial Cells None /LPF Urine Bacteria 0 /HPF (0-FEW) Urine Mucus Slight /LPF Urine Opiates Screen Neg (NEG) Urine Methadone Screen Neg (NEG) Urine Barbiturates Neg (NEG) Urine Phencyclidine Screen Neg (NEG) Urine Amphetamine/Methamphetamine Neg (NEG) Urine Benzodiazepines Screen Neg (NEG) Urine Cocaine Screen Neg (NEG) Urine Cannabinoids Screen Pos (NEG) Urine Ethyl Alcohol Neg (NEG) Test 11/18/18 23:28 Glucose (Fingerstick) 260 mg/dL (70-99) Brief Hospital Course Mr. Shaikh is a 68 old male who presented with hx hypoglycemia and recent viral syndrome. Now having some constipation and nausea. Discharge Information Condition at Discharge: Improved, Stable Disposition/Orders: D/C to Home Dischare Medications Current Medications Aspirin (Children'S Aspirin) 324 mg 1X ONCE PO Last administered on 11/18/18at 20:29; Admin Dose 324 MG; Start 11/18/18 at 19:45; Stop 11/18/18 at 19:46; Status DC Lactated Ringer's 1,000 ml @ 1,000 mls/hr Q1H IV Last administered on at 20:43; Admin Dose 1,000 MLS/HR; Start 11/18/18 at 19:45; Stop 11/18/18 at 20:44; Status DC Ondansetron HCl (Zofran) 4 mg 1X ONCE IV Last administered on 11/18/18at 20:48 ; Admin Dose 4 MG; Start 11/18/18 at 20:45; Stop 11/18/18 at 20:49; Status DC Ondansetron HCl (Zofran) 4 mg STK-MED ONCE .ROUTE ; Start 11/18/18 at 20:37; Stop 11/19/18 at 02:19; Status DC Active Scripts Active Meclizine Hcl 25 Mg Tablet 1 Tab PO Q8HRS PRN Reported Novolog (Insulin Aspart) 100 Unit/1 Ml Vial 15 Unit SQ DAILYBFRSUP Novolog (Insulin Aspart) 100 Unit/1 Ml Vial 3 Unit SQ DAILYBFRLUN Novolog (Insulin Aspart) 100 Unit/1 Ml Vial 7 Unit SQ DAILYAC Vitamin B-12 (Cyanocobalamin (Vitamin B-12)) 1,000 Mcg Tablet 1,000 Mcg PO BID Ketoconazole 15 Gm Cream..g. 1 Nydia TP DAILY Motrin Ib (Ibuprofen) 200 Mg Tablet 400 Mg PO PRN BID PRN Naproxen 500 Mg Tablet 500 Mg PO BID Fluticasone Propionate Nasal [place] (Fluticasone Propionate) 16 Gm [place].susp 2 [place] NS HS Magox 400 (Magnesium Oxide) 400 Mg Tablet 400 Mg PO BID Novolog (Insulin Aspart) 100 Unit/1 Ml Cartridge 0-5 Unit SQ SLIDING SCALE Niacin Er (Niacin) 500 Mg Tab.er.24h 500 Mg PO QHS Lantus (Insulin Glargine,Hum.rec.anlog) 100 Unit/1 Ml Vial 28 Unit SQ HS Pantoprazole Sodium 40 Mg Tablet.dr 40 Mg PO DAILYAC Lisinopril 10 Mg Tablet 10 Mg PO QHS Amlodipine-Atorvast 5-80 Mg (Amlodipine/Atorvastatin) 1 Each Tablet 1 Each PO QHS NINFA FINE MD Nov 18, 2018 19:21
[2018-11-18] MEDS ORDERED: IV RINGERS SOLUTION,LACTATED 1,000 ML IV SCH (19:45)
[2018-11-18] MEDS ORDERED: ASPIRIN 81 MG TAB.CHEW PO ONE (19:45)
[2018-11-18 19:52] LABS: BASO # 0.1 x10^3/uL (0.0-0.2); BASO % 1 % (0-3); EOS # 0.1 x10^3/uL (0.0-0.7); EOS % 2 % (0-3); HEMATOCRIT 41.3 % (39.0-53.0); HEMOGLOBIN 14.3 g/dL (13.0-17.5); LYMPH # 1.8 x10^3/uL (1.0-4.8); LYMPH % 24 % (24-48); MEAN CORPUSCULAR HEMOGLOBIN 30 pg (25-35); MEAN CORPUSCULAR HGB CONC 35 g/dL (31-37); MEAN CORPUSCULAR VOLUME 88 fL (79-100); MONO # 0.7 x10^3/uL (0.0-1.1); MONO % 10 % (0-9); NEUT # 4.8 x10^3uL (1.8-7.7); NEUT % 64 % (31-73); PLATELET COUNT 248 x10^3/uL (140-400); RED BLOOD COUNT 4.72 x10^6/uL (4.30-5.70); RED CELL DISTRIBUTION WIDTH 13.5 % (11.5-14.5); WHITE BLOOD COUNT 7.5 x10^3/uL (4.0-11.0)
[2018-11-18 20:26] LABS: ALBUMIN 4.3 g/dL (3.4-5.0); CALCIUM 9.2 mg/dL (8.5-10.1); CREATININE 0.7 mg/dL (0.7-1.3); DIRECT BILIRUBIN 0.2 mg/dL (0.0-0.2); GFR 112.8; MAGNESIUM 1.5 mg/dL (1.8-2.4); POTASSIUM 3.5 mmol/L (3.5-5.1); TOTAL BILIRUBIN 0.7 mg/dL (0.2-1.0)
[2018-11-18] MEDS ORDERED: ONDANSETRON PF 4 MG/2 ML VIAL. ONE (20:37)
[2018-11-18] MEDS ORDERED: ONDANSETRON PF 4 MG/2 ML VIAL. IV ONE (20:45)
[2018-11-18 21:22] LABS: INFLUENZA A PATIENT NEGATIVE (NEGATIVE); INFLUENZA B PATIENT NEGATIVE (NEGATIVE)
[2018-11-18 23:12] VITALS: BP 136/72
--- NOTE | 2018-11-19 01:31 | RAD ---
ACUTE ABDOMEN SERIES History: Chest and abdominal pain, high blood sugar, diabetes Comparison: Chest radiograph October 24, 2017 and abdomen radiograph September 21, 2017 Findings: Single view of the chest and 2 supine AP views of the abdomen are submitted. There is no lobar consolidation, pleural fluid, pneumothorax. Heart size is stable. No free air is identified. There is retained stool greater of the right colon. No gas dilated small bowel is identified. Impression: 1. No gas dilated small bowel is identified. There is retained stool greater of the right colon. Electronically signed by: Bang Malhotra MD (11/18/2018 11:51 PM) [facility]
[2018-11-19 02:33] LABS: BARBITURATES NEG (NEG); BENZODIAZEPINES NEG (NEG); COCAINE NEG (NEG); METHADONE NEG (NEG); OPIATES NEG (NEG); PHENCYCLIDINE NEG (NEG)
[2018-11-19 04:32] LABS: AMPHETAMINE/METHAMPHETAMINE NEG (NEG)
[2018-11-19 04:36] LABS: CANNABINOIDS POS (NEG)
[2018-11-19 04:37] LABS: BACTERIA,URINE 0 /HPF (0-FEW); BILIRUBIN,URINE NEG (NEG); CLARITY,URINE CLEAR; COLOR,URINE YELLOW; GLUCOSE,URINE 100 mg/dL (NEG); NITRITE,URINE NEG (NEG); RBC,URINE 0 /HPF (0-2); UROBILINOGEN,URINE 0.2 mg/dL (0.2 mg/dL)
--- NOTE | 2018-11-19 17:41 | EKG ---
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
== END 2018-11-18 23:20 | disposition home or self-care (01) ==
LOC: ER 18:57
DX: E11.649 Type 2 diabetes mellitus with hypoglycemia without coma (principal); E11.65 Type 2 diabetes mellitus with hyperglycemia; I10 Essential (primary) hypertension; B34.9 Viral infection, unspecified; F12.90 Cannabis use, unspecified, uncomplicated; Z86.73 Personal history of transient ischemic attack (TIA), and cerebral infarction without residual deficits; Z88.6 Allergy status to analgesic agent; Z88.8 Allergy status to other drugs, medicaments and biological substances; Z91.010 Allergy to peanuts
CPT/HCPCS: 36415; 74022; 80048; 80076; 80307; 81001; 82150; 82553; 82947; 83690; 83735; 83880; 84443; 84484; 85025; 85610; 85730; 87070; 87804; 87880; 93005; 96361; 96374; 99284; J2405; J7120

== ENCOUNTER 2021-03-16 19:14 | Emergency (ER) | payer MEDICARE ==
[~2021-03-16] VITALS: Ht 176.5 cm; Wt 94.5 kg
[~2021-03-16 19:14] MED LIST changes: +CYAN-25 PO; -CYAN10005 PO; +LISI10TA16 PO; -LISI10TA2 PO; +MECL-75 PO; -MECL25TA3 PO; -PANT40TA5 PO; +PANT40TA6 PO
[2021-03-16] MEDS ORDERED: DEXTROSE 50% 25 GM / 50ML DISP.SYRIN. IV ONE ×3 (19:30→21:15)
--- NOTE | 2021-03-16 19:30 | PHYS DOC ---
Past History Past Medical History: Diabetes, Hypertension, TIA, Other Past Surgical History: Appendectomy, Tonsillectomy, Other Smoking: Non-smoker Alcohol Use: Occasionally Drug Use: Marijuana General Adult EDM: Chief Complaint: Food bolus HPI: HPI: 70-year-old male presents via EMS with concern for food bolus. The patient was eating at home when he started choking on some deer meat casserole that he made. Patient has coughed some things up but he still feels like there is a food bolus in his throat. No history of esophageal webs. No history of esophageal narrowing or dilation. He has had an ulcer in his esophagus in the past. He denies shortness of breath or difficulty breathing. He has no other complaints this time. Review of Systems: Review of Systems: Constitutional: Denies fever or chills Eyes: Denies change in visual acuity HENT: Food bolus Respiratory: Denies cough or shortness of breath Cardiovascular: Denies chest pain or edema GI: Denies abdominal pain, nausea, vomiting, bloody stools or diarrhea : Denies dysuria Musculoskeletal: Denies back pain or joint pain Integument: Denies rash Neurologic: Denies headache, focal weakness or sensory changes Endocrine: Denies polyuria or polydipsia Lymphatic: Denies swollen glands Psychiatric: Denies depression or anxiety Allergies: Allergies: Allergies Coded Allergies Type Severity Reaction Last Updated Verified aspirin Allergy Intermediate Nausea and Vomiting 11/18/18 Yes nicotine Allergy Intermediate Shortness of Air 11/18/18 Yes peanut Allergy Intermediate Rash 11/18/18 Yes Uncoded Allergies Type Severity Reaction Last Updated Verified SUNTAN LOTION Allergy Unknown Rash 01/16/14 Physical Exam: PE: Constitutional: Well developed, well nourished, obese, no acute distress, non- toxic appearance. [] HENT: Normocephalic, atraumatic, bilateral external ears normal, oropharynx abhinav st, no oral exudates, nose normal. [] Eyes: PERRLA, EOMI, conjunctiva normal, no discharge. [] Neck: Normal range of motion, no tenderness, supple, no stridor. [] Cardiovascular: Heart rate regular rhythm, no murmur [] Lungs & Thorax: Bilateral breath sounds clear to auscultation [] Abdomen: Bowel sounds normal, soft, no tenderness, no masses, no pulsatile masses. [] Skin: Warm, dry, no erythema, no rash. [] Back: No tenderness, no CVA tenderness. [] Extremities: Right bkwyw-rsi-jbio amputation [] Neurologic: Alert and oriented X 3, normal motor function, normal sensory function, no focal deficits noted. [] Psychologic: Affect normal, judgement normal, mood normal. [] EKG: EKG: [] Radiology/Procedures: Radiology/Procedures: [] Impressions: Exam: Neck 2 views INDICATION: Possible food bolus, feels like food stuck after eating TECHNIQUE: Frontal and lateral views of the neck Comparisons: None FINDINGS: Prevertebral soft tissues are unremarkable. No radiopaque foreign body identified. There is mild multilevel spondylotic change in the cervical spine with degenerative disc disease greatest at C4-C5 and C5-C6. Mild bilateral facet arthropathy is also noted in the cervical spine. Visualized paraspinal soft tissues are unremarkable. IMPRESSION: Multilevel spondylotic change in the lumbar spine as described above. No radiopaque foreign body identified. Electronically signed by: Sisi Tsai MD (03/16/2021 8:01 PM) [facility] DICTATED AND SIGNED BY: SISI TSAI MD DATE: 03/16/211958 CC: ERIC MORALES DO; CANDI BUNCH MD ~MTH0 0 CLINICAL HISTORY: Reason: Possible food bolus, patient feels food is stuck after eating, n/ COMPARISON: None available. TECHNIQUE: CT of the neck was performed without IV contrast. Axial, coronal and sagittal reformatted images were generated. PQRS compliance statement - One or more of the following individualized dose reduction techniques were utilized for this study: 1. Automated exposure control 2. Adjustment of the mA and/or kV according to patient size 3. Use of iterative reconstruction technique FINDINGS: Images through the skull base and cavernous sinuses are unremarkable. The orbits are unremarkable. The paranasal sinuses and mastoid air cells are unremarkable. The nasopharynx, oral pharynx and oral cavity including the floor of the mouth and tongue are unremarkable. The hypopharynx including the epiglottis, vallecula and pyriform sinuses are unremarkable. The larynx, vocal cords and subglottic airways are unremarkable/patent. The parotid and submandibular glands are unremarkable. The thyroid gland is unremarkable. The carotid arteries and jugular veins are patent. There is no evidence of pathologically enlarged lymph nodes. The osseous structures are unremarkable. The esophagus is distended, with layering fluid as well as soft tissue density at the level of the aortic arch. IMPRESSION: Distended appearance of the esophagus with layering fluid level and associated soft tissue prominence at the level of the aortic arch and may represent food bolus. This can be further assessed by endoscopy. Electronically signed by: Ej Shahid MD (03/16/2021 9:35 PM) [facility] DICTATED AND SIGNED BY: EJ SHAHID MD DATE: 03/16/212128 CC: ERIC MORALES DO; CANDI BUNCH MD ~MTH0 0 Heart Score: C/O Chest Pain: N/A Risk Factors: Risk Factors: DM, Current or recent (<one month) smoker, HTN, HLP, family history of CAD, obesity. Risk Scores: Score 0 - 3: 2.5% MACE over next 6 weeks - Discharge Home Score 4 - 6: 20.3% MACE over next 6 weeks - Admit for Clinical Observation Score 7 - 10: 72.7% MACE over next 6 weeks - Early Invasive Strategies Course & Med Decision Making: Course & Med Decision Making Pertinent Labs and Imaging studies reviewed. (See chart for details) On arrival patient told us that he took his insulin but really did not get a lot of food in. We checked his blood sugar and it was 40. We will give him some orange juice as he is still alert and oriented. Were putting in an IV and will give him an amp of D50. The patient's blood sugar has improved. The x-ray of the neck soft tissue is negative for acute findings. There are some chronic findings. See read for more details. It does not appear that there is an obv ious bolus in the patient's throat. Patient's blood sugar dropped again prescription given him additional D50. He has been unable to eat or drink. CT of the neck shows likely food bolus. We will transfer the patient to a facility with GI. I spoke with Dr. Savage, hospitalist at [facility] and he has accepted the patient for transfer and admission. GI has been made aware of the patient. He will go by ambulance. [] Dragon Disclaimer: Dragon Disclaimer: This electronic medical record was generated, in whole or in part, using a voice recognition dictation system. Departure Departure: Impression: Primary Impression: Esophageal obstruction due to food impaction Additional Impressions: Hypotension Hypoglycemia due to insulin Disposition: 02 SHORT TERM HOSPITAL Condition: STABLE Referrals: CANDI BUNCH MD (PCP) ERIC MORALES DO Mar 16, 2021 19:30
--- NOTE | 2021-03-16 20:03 | RAD ---
Exam: Neck 2 views INDICATION: Possible food bolus, feels like food stuck after eating TECHNIQUE: Frontal and lateral views of the neck Comparisons: None FINDINGS: Prevertebral soft tissues are unremarkable. No radiopaque foreign body identified. There is mild multilevel spondylotic change in the cervical spine with degenerative disc disease grea test at C4-C5 and C5-C6. Mild bilateral facet arthropathy is also noted in the cervical spine. Visualized paraspinal soft tissues are unremarkable. IMPRESSION: Multilevel spondylotic change in the lumbar spine as described above. No radiopaque foreign body iden tified. Electronically signed by: Sisi Barrera MD (03/16/2021 8:01 PM) [facility]
[2021-03-16 21:30] VITALS: BP 145/81
--- NOTE | 2021-03-16 21:38 | RAD ---
CLINICAL HISTORY: Reason: Possible food bolus, patient feels food is stuck after eating, n/ COMPARISON: None available. TECHNIQUE: CT of the neck was performed without IV contrast. Axial, coronal and sagittal reformatted images were generated. PQRS compliance statement - One or more of the following individualized dose reduction techniques wer e utilized for this study: 1. Automated exposure control 2. Adjustment of the mA and/or kV according to patient size 3. Use of iterative reconstruction technique FINDINGS: Images through the skull base and cavernous sinuses are unremarkable. The orbits are unremarkable. Th e paranasal sinuses and mastoid air cells are unremarkable. The nasopharynx, oral pharynx and oral cavity including the floor of the mouth and tongue are unrema rkable. The hypopharynx including the epiglottis, vallecula and pyriform sinuses are unremarkable. The larynx, vocal cords and subglottic airways are unremarkable/patent. The parotid and submandibular glands are unremarkable. The thyroid gland is unremarkable. The carotid arteries and jugular veins are patent. There is no evidence of pathologically enlarged lymph nodes. The osseous structures are unremarkable. The esophagus is distended, with layering fluid as well as soft tissue density at the level of the ao rtic arch. IMPRESSION: Distended appearance of the esophagus with layering fluid level and associated soft tissue prominence at the level of the aortic arch and may represent food bolus. This can be further assessed by endosc opy. Electronically signed by: Ej Sweeney MD (03/16/2021 9:35 PM) [facility]
[2021-03-16] MEDS ORDERED: GLUCAGON,HUMAN RECOMBINANT 1 MG KIT. IV ONE (21:45)
[2021-03-16] MEDS ORDERED: IV DEXTROSE 5 %-0.45 % NACL 1,000 ML IV ONE (22:30)
== END 2021-03-16 22:45 | disposition short-term general hospital (02) ==
LOC: ER 19:14
DX: K22.2 Esophageal obstruction (principal); I95.9 Hypotension, unspecified; E11.649 Type 2 diabetes mellitus with hypoglycemia without coma; I10 Essential (primary) hypertension; Z86.73 Personal history of transient ischemic attack (TIA), and cerebral infarction without residual deficits; Z90.89 Acquired absence of other organs; Z88.6 Allergy status to analgesic agent; Z88.1 Allergy status to other antibiotic agents; Z91.010 Allergy to peanuts; Z88.8 Allergy status to other drugs, medicaments and biological substances
CPT/HCPCS: 70360; 70490; 82947; 96374; 96375; 96376; 99285; J1610

== ENCOUNTER 2021-04-25 19:51 | Emergency (ER) | payer MEDICARE ==
[~2021-04-25] VITALS: Ht 175.3 cm; Wt 91.0 kg
[2021-04-25 20:10] VITALS: BP 123/70
--- NOTE | 2021-04-25 20:46 | PHYS DOC ---
Past History Past Medical History: Diabetes, High Cholesterol, Hypertension, TIA, Other Past Surgical History: Tonsillectomy Additional Past Surgical Histo: RIGHT LEG AMPUTATION Smoking: Non-smoker Alcohol Use: None Drug Use: Marijuana General Adult EDM: Chief Complaint: ABDOMINAL PAIN HPI: HPI: ".. I ve been having some gut problems it all started after I got some deer meat stuck in my esophagus--- and I had to go to [place] and have Dr. Hoyt pull it out.. back on March 13.. and I am to have a follow up EGD on the coming sunday.. " Patient is a 70 year old male who presents with above hx and complaints of abdomen pain. Pt. localized pain more in Rt upper quadrant on rebound. Pt. does however have generalized pain. No psoas sign. Patient was recently evaluated and emergency department back on March 13 for esophageal bolus of deer meat which required transfer to [facility]. Patient underwent upper GI scope by Dr. Hoyt and a deer meat bolus was removed. Patient has had some diarrhea or loose stools with onset of discomfort today. Patient has had abdomen surgeries of appendectomy. Patient denies any recent travel. No significant ill contacts. Has had periodic problems with upper abdomen dysphagia or complaints that feels like food is not getting to his stomach. Patient states today he is discomfort in his abdomen is more generalized. Patient denies any intake of bad food. Has had symptoms checked to complaints of fever and chills. Patient does have significant past medical history of diabetes, hypertension, TIAs, gastric ulcers, arthritis, episodes of hypoglycemia and constipation. Review of Systems: Review of Systems: Constitutional: Denies fever or chills Eyes: Denies change in visual acuity HENT: Denies nasal congestion or sore throat Respiratory: Denies cough or shortness of breath Cardiovascular: Denies chest pain or edema GI: Complains of generalized abdominal pain, nausea,. Denies vomiting, bloody stools or diarrhea : Denies dysuria Musculoskeletal: Denies back pain or joint pain Integument: Denies rash Neurologic: Denies headache, focal weakness or sensory changes Endocrine: Denies polyuria or polydipsia Lymphatic: Denies swollen glands Psychiatric: Denies depression or anxiety Family History: Family History: Noncontributory Current Medications: Current Meds: See nursing Allergies: Allergies: Allergies Coded Allergies Type Severity Reaction Last Updated Verified aspirin Allergy Intermediate Nausea and Vomiting 11/18/18 Yes nicotine Allergy Intermediate Shortness of Air 11/18/18 Yes peanut Allergy Intermediate Rash 11/18/18 Yes pantoprazole Allergy Unknown 04/25/21 Yes Uncoded Allergies Type Severity Reaction Last Updated Verified SUNTAN LOTION Allergy Unknown Rash 01/16/14 Physical Exam: PE: Constitutional: Moderate acute distress, non-toxic appearance. [] HENT: Normocephalic, atraumatic, bilateral external ears normal, oropharynx moist, no oral exudates, nose normal. [] Eyes: PERRLA, EOMI, conjunctiva normal, no discharge. [] Neck: Normal range of motion, no tenderness, supple, no stridor. [] Cardiovascular:Heart rate regular rhythm, no murmur [] Lungs & Thorax: Bilateral breath sounds equal apex with few scattered wheezes on auscultation [] Abdomen: Bowel sounds are hyperactive, soft, generalized abdomen tenderness, no masses, no pulsatile masses. Some rebound right upper quadrant. Old surgery scars. Skin: Warm, dry, no erythema, no rash. [] Back: No tenderness, no CVA tenderness. [] Extremities: No tenderness, no cyanosis, no clubbing, ROM intact, no edema. No psoas sign. Dpzto-mvw-pyog amputation right Neurologic: Alert and oriented X 3, normal motor function, normal sensory function, no focal deficits noted. [] Psychologic: Affect anxious,, judgement normal, mood normal. [] Current Patient Data: Vital Signs: Vital Signs Date Time Temp Pulse Resp B/P (MAP) Pulse Ox O2 Delivery O2 Flow Rate FiO2 04/25/21 20:10 97.1 77 16 123/70 95 Room Air EKG: EKG: My interpretation EKG shows sinus rhythm at 68 bpm with no acute morphology time of EKG is 2112 hrs. My interpretation EKG #2 shows a sinus rhythm at 79 bpm with no acute morphology. Overall morphology is same as EKG #1 time of this EKG was 136 hours Radiology/Procedures: Radiology/Procedures: [[address] [address] IMAGING REPORT Signed PATIENT: JEROD CAN LACCOUNT: [id number] : 1950 LOCATION: ER AGE: 70 SEX: M EXAM STATUS: REG ER ORD. PHYSICIAN: NINFA FINE MD REASON: pain, OMNI 300, 75ml & OMNI 240, 30ml PROCEDURE: CT ABD PELV W/ORAL&IV CONTRAST CT ABDOMEN+PELVIS W History: pain Comparison: 06/21/2020 Technique: After administration of intravenous contrast, helical CT of the abdomen and pelvis was performed from the lung bases through the ischial tuberosities. Coronal and sagittal reconstructions were obtained. 75 mL of Omnipaque 300 were used. One or more of the following dose reduction techniques were utilized: Automated exposure control (AEC), Adjustment of mA and/or kV according to patient size, Use of iterative reconstruction technique such as ASiR, CT scan done according to ALARA and image gently/image wisely Abdomen Findings: The visualized lung bases are clear. Mild abdominopelvic ascites. The liver, gallbladder, pancreas, spleen, and bilateral adrenal glands are normal. Symmetric renal enhancement. There is no focal renal mass. There is no hy dronephrosis. Multiple conspicuous fluid-filled but nondilated loops of small bowel. The visualized loops of large bowel are normal. There is no evidence of bowel obstruction. Appendectomy. There is no mesenteric or retroperitoneal adenopathy. The abdominal aorta is normal in caliber. Mild aortoiliac atherosclerotic disease. Pelvis Findings: Urinary bladder is normal. There is no pelvic or inguinal adenopathy. There is no acute bony abnormality. Degenerative changes of the spine, worst at L2-3 with at least moderate spinal canal stenosis. Small fat-containing left inguinal hernia. Right lower extremity muscular atrophy. IMPRESSION: 1. Multiple conspicuous fluid-filled but nondilated loops of small bowel, nonspecific but can be seen with enteritis. 2. Mild abdominopelvic free fluid. Electronically signed by: Kasey Cameron MD (04/26/2021 4:12 AM) [facility] [place] DICTATED AND SIGNED BY: KASEY CAMERON MD DATE: 04/26/21 0406 CC: CANDI BUNCH MD; NINFA FINE MD ~MTH0 0 ][address] [address] IMAGING REPORT Signed PATIENT: JEROD CAN LACCOUNT: [id number] : 1950 LOCATION: ER AGE: 70 SEX: M EXAM STATUS: REG ER ORD. PHYSICIAN: NINFA FINE MD REASON: pain PROCEDURE: ACUTE ABDOMEN SERIES Exam: Acute abdominal series INDICATION: Pain TECHNIQUE: Frontal view of the chest with upright and supine views of the abdomen Comparisons: None FINDINGS: The cardiomediastinal silhouette and pulmonary vessels are within normal limits. The lung and pleural spaces are clear. Air and stool are noted throughout the colon to level the rectum in a nonobstr uctive bowel gas pattern. No suspicious masses or calcifications. Visualized osseous structures are unremarkable. IMPRESSION: 1. No acute cardiopulmonary process. 2. Nonobstructive bowel gas pattern. Electronically signed by: Sisi Tsai MD (04/25/2021 10:11 PM) [facility] DICTATED AND SIGNED BY: SISI TSAI MD DATE: 04/25/212209 CC: CANDI BUNCH MD; INNFA FINE MD ~MTH0 0 Heart Score: C/O Chest Pain: N/A Risk Factors: Risk Factors: DM, Current or recent (<one month) smoker, HTN, HLP, family history of CAD, obesity. Risk Scores: Score 0 - 3: 2.5% MACE over next 6 weeks - Discharge Home Score 4 - 6: 20.3% MACE over next 6 weeks - Admit for Clinical Observation Score 7 - 10: 72.7% MACE over next 6 weeks - Early Invasive Strategies Course & Med Decision Making: Course & Med Decision Making Pertinent Labs and Imaging studies reviewed. (See chart for details) Patient declining admission at this time. Patient requesting discharge home. Patient to Stay on clear fluid diet only. No solids or milk products. Clear fluids only.. Take Cipro 500 twice a day and Flagyl 500 three times a day. Keep follow up with Dr. Hoyt and primary. Patient currently to return at any time if he elects admission.. Impression: 1. Abdomen Pain 2. Leukocytosis = 19.3 86 N Segs 68 3. DM = `185 4. Gastroenteritis 5. Hx of Recent Food Bolus Esophageal Obstruction 03/16/21 Che Disclaimer: Che Disclaimer: This electronic medical record was generated, in whole or in part, using a voice recognition dictation system. Departure Departure: Referrals: CANDI BUCNH MD (PCP) Scripts Ciprofloxacin (CIPRO) 500 Mg/5 Ml Rossi.mc.rec 500 MG PO BID for gastroenteritis for 7 Days, MISC Prov: NINFA FINE MD 04/26/21 Metronidazole (FLAGYL) 500 Mg Tablet 500 MG PO TID for gastroenteritis for 10 Days, #30 TAB Prov: NINFA FINE MD 04/26/21 Ondansetron Hcl (ZOFRAN) 4 Mg Tablet 8 MG PO QIDPRN PRN for NAUSEA/VOMITING, #30 TAB Prov: NINFA FINE MD 04/26/21 Dragon Disclaimer This chart was dictated in whole or in part using Voice Recognition software in a busy, high-work load, and often noisy Emergency Department environment. It may contain unintended and wholly unrecognized errors or omissions. Dragon Disclaimer This chart was dictated in whole or in part using Voice Recognition software in a busy, high-work load, and often noisy Emergency Department environment. It may contain unintended and wholly unrecognized errors or omissions. Dragon Disclaimer This chart was dictated in whole or in part using Voice Recognition software in a busy, high-work load, and often noisy Emergency Department environment. It may contain unintended and wholly unrecognized errors or omissions. NINFA FINE MD Apr 25, 2021 20:46
[2021-04-25 21:30] LABS: BASO # 0.1 x10^3/uL (0.0-0.2); BASO % 0 % (0-3); EOS # 0.1 x10^3/uL (0.0-0.7); EOS % 1 % (0-3); HEMATOCRIT 47.9 % (39.0-53.0); HEMOGLOBIN 16.1 g/dL (13.0-17.5); LYMPH # 1.3 x10^3/uL (1.0-4.8); LYMPH % 7 % (24-48); MEAN CORPUSCULAR HEMOGLOBIN 29 pg (25-35); MEAN CORPUSCULAR HGB CONC 34 g/dL (31-37); MEAN CORPUSCULAR VOLUME 87 fL (79-100); MONO # 1.2 x10^3/uL (0.0-1.1); MONO % 6 % (0-9); NEUT # 16.6 x10^3uL (1.8-7.7); NEUT % 86 % (31-73); PLATELET COUNT 244 x10^3/uL (140-400); RED BLOOD COUNT 5.48 x10^6/uL (4.30-5.70); RED CELL DISTRIBUTION WIDTH 13.7 % (11.5-14.5); WHITE BLOOD COUNT 19.3 x10^3/uL (4.0-11.0)
[2021-04-25] MEDS ORDERED: FAMOTIDINE 20 MG/2 ML VIAL IVP ONE (21:30)
[2021-04-25] MEDS ORDERED: IV RINGERS SOLUTION,LACTATED 1,000 ML IV SCH (21:30)
[2021-04-25] MEDS ORDERED: ONDANSETRON PF 4 MG/2 ML VIAL. IVP ONE (21:30)
[2021-04-25 22:06] LABS: CALCIUM 9.1 mg/dL (8.5-10.1); GFR 74.3; POTASSIUM 3.7 mmol/L (3.5-5.1)
[2021-04-25 22:13] LABS: % ATYL 7 % (0-0); % BANDS 13 % (0-9); % EOS 1 % (0-5); % LYMPHS 9 % (24-48); % MONOS 2 % (0-10); % SEGS 68 % (35-66)
--- NOTE | 2021-04-25 22:13 | RAD ---
Exam: Acute abdominal series INDICATION: Pain TECHNIQUE: Frontal view of the chest with upright and supine views of the abdomen Comparisons: None FINDINGS: The cardiomediastinal silhouette and pulmonary vessels are within normal limits. The lung and pleural spaces are clear. Air and stool are noted throughout the colon to level the rectum in a nonobstructive bowel gas patter n. No suspicious masses or calcifications. Visualized osseous structures are unremarkable. IMPRESSION: 1. No acute cardiopulmonary process. 2. Nonobstructive bowel gas pattern. Electronically signed by: Sisi Barrera MD (04/25/2021 10:11 PM) [facility]
[2021-04-25 22:15] LABS: PLT ESTIMATE ADEQUATE (ADEQUATE)
[2021-04-25 22:19] LABS: ALBUMIN 3.8 g/dL (3.4-5.0); DIRECT BILIRUBIN 0.1 mg/dL (0.0-0.2); MAGNESIUM 1.6 mg/dL (1.8-2.4); TOTAL BILIRUBIN 0.5 mg/dL (0.2-1.0); TOTAL PROTEIN 6.4 g/dL (6.4-8.2)
[2021-04-25 23:04] LABS: BARBITURATES NEG (NEG); BENZODIAZEPINES NEG (NEG); CANNABINOIDS POS (NEG); COCAINE NEG (NEG); METHADONE NEG (NEG); OPIATES NEG (NEG); PHENCYCLIDINE NEG (NEG)
[2021-04-25 23:06] LABS: BILIRUBIN,URINE NEG (NEG); CLARITY,URINE CLEAR; COLOR,URINE YELLOW; GLUCOSE,URINE 250 mg/dL (NEG)
[2021-04-25 23:07] LABS: BACTERIA,URINE 0 /HPF (0-FEW); NITRITE,URINE NEG (NEG); RBC,URINE 0 /HPF (0-2); SQUAMOUS EPITHELIAL CELL,UR FEW /LPF; UROBILINOGEN,URINE 0.2 mg/dL (0.2 mg/dL); WBC,URINE OCC /HPF (0-4)
[2021-04-25 23:08] LABS: AMPHETAMINE/METHAMPHETAMINE NEG (NEG)
--- NOTE | 2021-04-26 01:47 | EKG ---
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
[2021-04-26] MEDS ORDERED: IOHEXOL 240 MG/ML 50ML VIAL. PO ONE (03:00)
[2021-04-26] MEDS ORDERED: CONTRAST GIVEN. MC PRN (03:00)
[2021-04-26] MEDS ORDERED: IOHEXOL 300 MG/ML 75 ML VIAL. IV ONE (03:00)
[2021-04-26] MEDS ORDERED: cefTRIAXone SODIUM 1 GM VIAL ONE (03:03)
[2021-04-26] MEDS ORDERED: IV NORMAL SALINE 50ML 50 ML ONE (03:03)
--- NOTE | 2021-04-26 04:14 | RAD ---
CT ABDOMEN+PELVIS W History: pain Comparison: 06/21/2020 Technique: After administration of intravenous contrast, helical CT of the abdomen and pelvis was per formed from the lung bases through the ischial tuberosities. Coronal and sagittal reconstructions wer e obtained. 75 mL of Omnipaque 300 were used. One or more of the following dose reduction techniques were utilized: Automated exposure control (AEC), Adjustment of mA and/or kV according to patient size , Use of iterative reconstruction technique such as ASiR, CT scan done according to ALARA and image g ently/image wisely Abdomen Findings: The visualized lung bases are clear. Mild abdominopelvic ascites. The liver, gallbladder, pancreas, spleen, and bilateral adrenal glands are normal. Symmetric renal enhancement. There is no focal renal mass. There is no hydronephrosis. Multiple conspicuous fluid-filled but nondilated loops of small bowel. The visualized loops of large bowel are normal. There is no evidence of bowel obstruction. Appendectomy. There is no mesenteric or retroperitoneal adenopathy. The abdominal aorta is normal in caliber. Mild aortoiliac atherosclerotic disease. Pelvis Findings: Urinary bladder is normal. There is no pelvic or inguinal adenopathy. There is no acute bony abnormality. Degenerative changes of the spine, worst at L2-3 with at least mo derate spinal canal stenosis. Small fat-containing left inguinal hernia. Right lower extremity muscul ar atrophy. IMPRESSION: 1. Multiple conspicuous fluid-filled but nondilated loops of small bowel, nonspecific but can be seen with enteritis. 2. Mild abdominopelvic free fluid. Electronically signed by: Bang Cameron MD (04/26/2021 4:12 AM) [facility]
[2021-04-26] MEDS ORDERED: ONDA4TAB7 PO (04:49)
[2021-04-26] MEDS ORDERED: CIPR500S2 PO (04:49)
[2021-04-26] MEDS ORDERED: METR500T PO (04:49)
--- NOTE | 2021-04-26 19:21 | EKG ---
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
== END 2021-04-26 05:02 | disposition home or self-care (01) ==
LOC: ER 19:51
DX: K52.9 Noninfective gastroenteritis and colitis, unspecified (principal); D72.829 Elevated white blood cell count, unspecified; E11.9 Type 2 diabetes mellitus without complications; R10.84 Generalized abdominal pain; E78.00 Pure hypercholesterolemia, unspecified; I10 Essential (primary) hypertension; Z86.73 Personal history of transient ischemic attack (TIA), and cerebral infarction without residual deficits; Z88.6 Allergy status to analgesic agent; Z91.010 Allergy to peanuts; Z88.8 Allergy status to other drugs, medicaments and biological substances
CPT/HCPCS: 36415; 74022; 74177; 80048; 80076; 80307; 81001; 82550; 83690; 83735; 83880; 84443; 84484; 85007; 85025; 93005; 96361; 96365; 96366; 96368; 96375; 99285; J0696; J2405; J3490; J7120; Q9966; Q9967

== ENCOUNTER 2021-09-03 16:03 | Emergency (ER) | payer MEDICARE ==
[~2021-09-03] VITALS: Ht 175.3 cm; Wt 91.0 kg
[2021-09-03 16:03] VITALS: BP 146/78
[~2021-09-03 16:03] MED LIST changes: +CIPR500S2 PO; +METR500T PO; +ONDA4TAB7 PO
[2021-09-03] MEDS ORDERED: AZEL205.2 NS (16:54)
--- NOTE | 2021-09-03 16:55 | PHYS DOC ---
Past History Past Medical History: Diabetes, High Cholesterol, Hypertension, TIA, Other Past Surgical History: Tonsillectomy Additional Past Surgical Histo: RIGHT LEG AMPUTATION Smoking: Non-smoker Alcohol Use: None Drug Use: Marijuana General Adult EDM: Chief Complaint: GENERALIZED BODY ACHES HPI: HPI: Patient is a 71-year-old male coming in for upper respiratory complaints. Patient is complaining of a fever, scratchy throat, congestion with rhinorrhea, cough productive of white phlegm. Denies any GI complaints. Patient states he has had his Covid booster and flu vaccine this season. Was seen at his primary care provider's office by the nurse practitioner earlier today and had lab work and throat swabs done. Patient states he did not have a Covid or flu swab done. He did have a Covid exposure yesterday. Patient states that he was given Flonase from the primary care provider but has not had any relief. He also took 2 Tylenols earlier. Review of Systems: Review of Systems: All other systems within normal limits except for as noted in the HPI Allergies: Allergies: Allergies Coded Allergies Type Severity Reaction Last Updated Verified aspirin Allergy Intermediate Nausea and Vomiting 11/18/18 Yes nicotine Allergy Intermediate Shortness of Air 11/18/18 Yes peanut Allergy Intermediate Rash 11/18/18 Yes pantoprazole Allergy Unknown 04/25/21 Yes Uncoded Allergies Type Severity Reaction Last Updated Verified SUNTAN LOTION Allergy Unknown Rash 01/16/14 Physical Exam: PE: Constitutional: Well developed, well nourished, no acute distress, non-toxic appearance. [] HENT: Normocephalic, atraumatic, bilateral external ears normal, nose normal. [] Eyes: PERRLA, conjunctiva normal, no discharge. [] Neck: No rigidity, supple, no stridor. [] Cardiovascular: Regular rate and rhythm, brisk cap refill [] Lungs & Thorax: Non labored symmetric respirations, no tachypnea or respiratory distress. Faint right upper lung wheezes [] Abdomen: Soft, nondistended. Skin: Warm, dry, no erythema, no rash. [] Back: Unremarkable Extremities: No deformities, range of motion grossly intact, no lower extremity edema [] Neurologic: Alert and oriented X 3, no focal deficits noted. [] Psychologic: Affect normal, judgement normal, mood normal. [] EKG: EKG: [] Radiology/Procedures: Radiology/Procedures: [address] [id number] IMAGING REPORT Signed PATIENT: JEROD CAN LACCOUNT: [id number] : 1950 LOCATION: ER AGE: 71 SEX: M EXAM STATUS: REG ER ORD. PHYSICIAN: CYRIL DIAL MD REASON: cough PROCEDURE: CHEST AP ONLY Exam: Chest one view INDICATION: Cough TECHNIQUE: Frontal view of the chest Comparisons: 10/24/2017 FINDINGS: The cardiomediastinal silhouette and pulmonary vessels are within normal limits. The lung and pleural spaces are clear. IMPRESSION: No acute cardiopulmonary process. Electronically signed by: Sisi Tsai MD (09/03/2021 4:59 PM) [facility] DICTATED AND SIGNED BY: SISI TSAI MD DATE: 09/03/211658 CC: CYRIL DIAL MD; CANDI BUNCH MD ~MTH0 0 [] Heart Score: C/O Chest Pain: No Risk Factors: Risk Factors: DM, Current or recent (<one month) smoker, HTN, HLP, family history of CAD, obesity. Risk Scores: Score 0 - 3: 2.5% MACE over next 6 weeks - Discharge Home Score 4 - 6: 20.3% MACE over next 6 weeks - Admit for Clinical Observation Score 7 - 10: 72.7% MACE over next 6 weeks - Early Invasive Strategies Course & Med Decision Making: Course & Med Decision Making Pertinent Labs and Imaging studies reviewed. (See chart for details) [] Dragon Disclaimer: Dragon Disclaimer: This electronic medical record was generated, in whole or in part, using a voice recognition dictation system. Departure Departure: Impression: Primary Impression: Person under investigation for COVID-19 Additional Impression: URI (upper respiratory infection) Disposition: HOME / SELF CARE / HOMELESS Condition: STABLE Referrals: CANDI BUNCH MD (PCP) Additional Instructions: You have been tested for or diagnosed with COVID-19. It is an infection caused by a new type of coronavirus. COVID-19 will cause cold-like or mild flu symptoms in most. It can cause more severe symptoms like problems breathing in some. There is no treatment for COVID-19. The body will clear the infection over time. Self-care will help to ease discomfort. Steps to Take: Self-Care Rest as needed. Healthy habits may help you feel better. Steps include: Choose healthy foods including fruits and vegetables. Drink water throughout the day. Get plenty of sleep each night. If you smoke, try to quit. It may ease breathing. Avoid alcohol. Keep Others Healthy The virus can spread to others. Droplets are released every time you sneeze or cough. The droplets can get into the mouth, nose, or eyes of people near you and lead to infection. To lower the chances of spreading COVID-19 to others: Stay at home until your doctor has said it is safe to leave. If you tested positive this will mean staying isolated until both of the following are true: At least 7 days have passed since the start of illness. You are free of fever for at least 72 hours without the use of medicine. During this time: - Avoid public areas, events, or transportation. Do not return to work or school until your doctor has said it is safe to do so. - Call ahead if you need to go to a medical center. Let them know you may have COVID-19. It will help them guide you where to go. They may also ask you to wear a facemask when you come to the office. - If you call for emergency medical services, let them know you may have COVID- 19. While at home: - Try to avoid close contact with others. Stay about 6 feet away. - If possible, spend most of your time in a separate room from others. - Use a face mask if you will be in close contact with others such as sharing a room or vehicle. - Have someone wipe down common surfaces in the home. Use household bottom turner every day on areas like doorknobs, counters, or sinks. - Cough or sneeze into a tissue. Throw the tissue away right after use. If a tissue is not available, cough or sneeze into your elbow. - Wash your hands often. Wash them after sneezing or coughing. Use soap and water and wash for at least 20 seconds. Alcohol based hand cleaner housekeeping can be used if soap and water is not available. - Do not prepare food for others. Avoid sharing personal items like forks, spoons, or toothbrushes. - Avoid close contact with pets while you are sick. There is no evidence of the virus passing to pets. This is a safety step until more is known about this virus. Isolation can be frustrating. Social interaction can help. Keep in touch with friends and family through phone and tech options. You can still interact with others in your home, just keep a safe distance of about 6 feet. Follow-up: Your doctors office will check in with you to see if there are any changes in your health. You may be asked to keep track of symptoms to share with them. They will also let you know when you are clear to be in public again. Problems to Look Out For: Contact your doctor if your recovery is not going as you expect. Get emergency care if you have problems such as: - Trouble breathing - Nonstop chest pain or pressure - Changes in awareness, confusion, or problems waking - Lips or face have bluish color - Worsening of symptoms If you think you have an emergency, call for emergency medical services right away. As taken from [facility] Azelastine HCl (Azelastine HCl) 205.5 Mcg/0.137 Ml [place].pump 2 SPR NS BID for congestion for 30 Days, #30 ML 0 Refills Prov: CYRIL DIAL MD 09/03/21 CYRIL DIAL MD Sep 03, 2021 16:55
--- NOTE | 2021-09-03 17:02 | RAD ---
Exam: Chest one view INDICATION: Cough TECHNIQUE: Frontal view of the chest Comparisons: 10/24/2017 FINDINGS: The cardiomediastinal silhouette and pulmonary vessels are within normal limits. The lung and pleural spaces are clear. IMPRESSION: No acute cardiopulmonary process. Electronically signed by: Sisi Barrera MD (09/03/2021 4:59 PM) [facility]
[2021-09-03 17:46] LABS: INFLUENZA A PATIENT NEGATIVE (NEGATIVE); INFLUENZA B PATIENT NEGATIVE (NEGATIVE)
== END 2021-09-03 18:06 | disposition home or self-care (01) ==
LOC: ER 16:03
DX: J06.9 Acute upper respiratory infection, unspecified (principal); E11.9 Type 2 diabetes mellitus without complications; E78.5 Hyperlipidemia, unspecified; I10 Essential (primary) hypertension; F12.10 Cannabis abuse, uncomplicated; Z20.822 Contact with and (suspected) exposure to COVID-19; Z88.6 Allergy status to analgesic agent; Z91.010 Allergy to peanuts
CPT/HCPCS: 71045; 82947; 87426; 87804; 99284; C9803; U0003